=== PATIENT | male | born 1930 | race Caucasian/White ===

== ENCOUNTER → 2017-02-19 | Outpatient (CLI) | payer BC ==
[~2017-02-19] MED LIST: ASPEC81 PO; ASPI81TA28 PO; CALCTAB5 PO; CHOL100010 PO; CHOL100027 PO; CPXI PO; DOXE10CA PO; DOXE50CA3 PO; FING1CAP PO; GLIM4TAB2 PO; HYDR-5688 PO; KETO2GEL2 TOP; LISINOPRIL HCTZ PO; LSN/10125 PO; METF-384 PO; MULT-506 PO; PANT40TA PO; PRAV40TA2 PO; PRLSR20 PO; PRT40 PO; PYRI100T4 PO; SILD100T PO; SILDENAFIL CITRATE PO; TAMS0.4C38 PO
[2017-02-19 17:57] LABS: BASO % 0.1 %; BASO ABS # 0.01 K/uL (0-0.2); COMPLETE YES; EOS % 1.7 %; HEMATOCRIT 40.5 % (42-52); IG% 0.3 %; LYMPH % 3.1 %; LYMPH ABS # 0.23 K/uL (1.2-3.4); MEAN CELL VOLUME 94.4 fL (80-100); MEAN CORPUSCULAR HEMOGLOBIN 31.2 pg (25-34); MEAN CORPUSCULAR HGB CONC 33.1 g/dl (32-36); MEAN PLATELET VOLUME 12.3 fL (7.4-10.4); MONO % 9.7 %; NEUT % 85.1 %; PLATELET COUNT 234 K/uL (130-400); RED BLOOD COUNT 4.29 M/uL (4.7-6.1); WHITE BLOOD COUNT 7.43 K/uL (4.8-10.8)
[2017-02-19 18:22] LABS: ALT/SGPT 28 U/L (12-78); AST/SGOT 18 U/L (15-37); BLOOD UREA NITROGEN 21 mg/dl (7-18); BUN/CREATININE RATIO 11.8 (10-20); CALCIUM 8.8 mg/dl (8.5-10.1); CARBON DIOXIDE 29 mmol/L (21-32); CHLORIDE 103 mmol/L (98-107); GLUCOSE 247 mg/dl (70-99); POTASSIUM 4.1 mmol/L (3.5-5.1); SODIUM 139 mmol/L (136-145)
[2017-02-19 18:23] LABS: ESTIMATED AVERAGE GLUCOSE 200 mg/dl; HA1C FLAG Normal (Normal)
[2017-02-19 18:31] LABS: ALB/GLOB RATIO 1.1 (0.9-2); ALKALINE PHOSPHATASE 115 U/L (45-117); TOTAL IRON BINDING CAPACITY 269 mcg/dl (250-450)
--- NOTE | 2017-02-26 13:51 | CODING QUERY MEDICAL NECESSITY ---
SUPPORTING DIAGNOSIS NEEDED A supporting diagnosis is required for the test/procedure performed on this patient in order for us to be reimbursed by the patient's insurance. Please provide a supporting diagnosis for the following test/procedure listed below next to the test name along with your signature. *If there is no additional diagnosis for this patient that would support the following test/procedure please document that below next to the test/procedure. Test(s)/Procedure(s) that require a supporting diagnosis: * VITAMIN D 25-HYDROXY DIAGNOSIS: * VITAMIN B-12 LEVEL DIAGNOSIS: * DOS: 02/19/17 Provider Signature: Date: Thank you Ava Burnham Health Information Management Once completed, please kindly fax back to [phone] For questions please call [phone]
== END | disposition home or self-care (01) ==
LOC: C.LABPVFM 11:50
PROVIDERS: ATTEND Psychiatry & Neurology Neurology
DX: G35 Multiple sclerosis (principal); R53.83 Other fatigue; F09 Unspecified mental disorder due to known physiological condition; G62.9 Polyneuropathy, unspecified; E11.65 Type 2 diabetes mellitus with hyperglycemia; E55.9 Vitamin D deficiency, unspecified; R41.3 Other amnesia

== ENCOUNTER 2017-05-30 19:30 | Inpatient (IN) | payer BC, OTHER ==
[~2017-05-30] VITALS: Ht 175.3 cm; Wt 85.7 kg
[~2017-05-30 19:30] MED LIST changes: -ASPI81TA28 PO; -CHOL100027 PO; -DOXE10CA PO; -FING1CAP PO; -GLIM4TAB2 PO; -HYDR-5688 PO; -KETO2GEL2 TOP; -LSN/10125 PO; -PANT40TA PO; -PRAV40TA2 PO; -PRLSR20 PO; -PRT40 PO; -PYRI100T4 PO; -SILD100T PO; -TAMS0.4C38 PO
[2017-05-30] MEDS ORDERED: ONDANSETRON INJ 2 MG/ML 2 ML VIAL IV STA (19:50)
[2017-05-30] MEDS ORDERED: SODIUM CHLORIDE 0.9% 1000ML 1,000 ML IV STA (19:50)
[2017-05-30] MEDS ORDERED: FENTANYL CITRATE INJ 50 MCG/1 ML 2 ML VIAL IV STA (19:50)
--- NOTE | 2017-05-30 19:55 | EMERGENCY ROOM VISIT NOTE ---
History Report prepared by Petty: Nikky Braden Under the Supervision of: Dr. Favio Unger M.D. First contact with patient: 19:43 Chief Complaint: ABDOMINAL PAIN Stated Complaint: AB PAIN, HEMATEMESIS Nursing Triage Summary: Pt states he was eating dinner tonight and approx. an hour later he got dizzy/nauseous and had abdominal pain. Pt had vomited once with bright red blood, pt states "a lot." Pt tender to bilateral lower quadrants. Pt states he is a chronic prednisone user. History of Present Illness The patient is a 87 year old male who presents to the Emergency Room with complaints of sudden abdominal pain beginning shortly prior to arrival. The patient reports that after he ate dinner he threw up a significant amount of blood. The patient reports that he is not on any blood thinners but that he takes a baby aspirin every other day. The patient has multiple sclerosis and once had to have a feeding tube placed because he was unable to swallow. He also reports that he has severe dry mouth. He denies having any urinary symptoms. The patient states that he has no history of kidney failure. Source of History: patient Onset: shortly prior to arrival Position: abdomen (epigastric ) Timing: other (sudden) Associated Symptoms: + vomiting (blood), No urinary symptoms Review of Systems See HPI for pertinent positives & negatives. A total of 10 systems reviewed and were otherwise negative. Past Medical & Surgical Medical Problems: (1) Diabetes (2) Hematemesis (3) Hypertension (4) Multiple sclerosis Family History Cancer Diabetes mellitus Hypertension Social History Smoking Status: Never Smoker Marital Status: Housing Status: lives with significant other Occupation Status: retired Current/Historical Medications Scheduled Aspirin (Aspirin Ec), 81 MG PO Q2D Cholecalciferol (Vitamin D 1000 Unit), 1,000 INTER.UNIT PO DAILY Doxepin (Sinequan), 10 MG PO HS Fingolimod Hcl (Gilenya), 1 CAP PO DAILY Glimepiride (Glimepiride), 1 TAB PO DAILY Hctz/Lisinopril (Lisinopril/Hctz 10/12.5 Mg), 1 TAB PO DAILY Omeprazole (Prilosec), 20 MG PO DAILY Pravastatin Sodium (Pravastatin Sodium), 40 MG PO QPM Pyridoxine (Vitamin B6), 100 MG PO DAILY Sildenafil Citrate (Viagra), 100 MG PO WK Scheduled PRN Ketoconazole (Topical) (Xolegel), 1 APPLN TOP DAILY PRN for Allergies Coded Allergies: Sulfa Antibiotics (Verified Allergy, Unknown, ., 05/30/17) Physical Exam Vital Signs Date Time Temp Pulse Resp B/P (MAP) Pulse Ox O2 Delivery O2 Flow Rate FiO2 05/30/17 21:35 91 18 100/62 96 Room Air 05/30/17 19:35 36.7 105 18 100/55 97 Room Air Physical Exam GENERAL: Patient is uncomfortable appearing and in moderate distress. HEENT: No acute trauma, normocephalic atraumatic, mucous membranes dry, no nasal congestion, no scleral icterus. NECK: No stridor, no adenopathy, no meningismus, trachea is midline. LUNGS: No dyspnea. Clear to auscultation and equal bilaterally. No wheeze, no rhonchi. HEART: Regular rate and rhythm. No murmurs, rubs, gallops appreciated. ABDOMEN: Soft, moderate epigastric tenderness, bowel sounds positive, no masses appreciated, no peritonitis. BACK: No midline tenderness, no CVA tenderness EXTREMITIES: Normal motion all extremities, no cyanosis, no edema. NEUROLOGIC: Alert and oriented, no acute motor or sensory deficits, no focal weakness, cranial nerves grossly intact. SKIN: No rash, no jaundice, no diaphoresis. Medical Decision & Procedures ER Provider Diagnostic Interpretation: CT results as stated below per interpretation by me and the radiologist: CT SCAN OF THE ABDOMEN AND PELVIS WITHOUT CONTRAST CLINICAL HISTORY: epigastric pain, vomiting, elevated WBC COMPARISON STUDY: No previous studies for comparison. TECHNIQUE: CT scan of the abdomen and pelvis was performed from the lung bases to the proximal femurs. Images are reviewed in the axial, sagittal, and coronal planes. IV contrast was not administered for this examination. CT DOSE: 1648.42 mGy.cm FINDINGS: Lower chest: There is respiratory motion artifact. There are dependent atelectatic changes. There are coronary artery calcifications present. There is a very small pericardial effusion. Liver: There is a 12 mm hypodensity within the left lobe of the liver, likely representing a cyst. Gallbladder: Unremarkable. There is a calcification adjacent the gallbladder neck. A vascular calcification is favored over a cystic duct calculus. Spleen: Normal in size and attenuation. Pancreas: Unremarkable. Adrenal glands: Unremarkable. Kidneys: No renal, ureteral, or bladder calculi are visualized. There is bilateral perinephric stranding. There is a 13 mm right renal cyst. Bowel: There is colonic diverticulosis. There are no acute peridiverticular inflammatory changes. The appendix appears normal. There is mild bowel wall thickening involving the ascending colon Peritoneum: There is no intraperitoneal free air or abdominal ascites. There is a fat-containing ventral hernia Vasculature: There is a 35mm infrarenal abdominal aortic aneurysm. Adenopathy: There is a left para-aortic lymph node measuring 8 mm. This is the upper limits of normal in size. Pelvic viscera: There are small fat-containing inguinal hernias. The prostate is enlarged measuring approximately 5 cm. Skeletal structures: There are advanced multilevel degenerative changes. There is ankylosis of the thoracic spine. No destructive lesions are visualized. IMPRESSION: 1. Gastric distention 2. Minor wall thickening involving the ascending colon 3. Diverticulosis. No evidence of acute diverticulitis 4. Normal appendix 5. No renal, ureteral, or bladder calculi identified 6. Fat-containing ventral hernia 7. 35mm infrarenal abdominal aortic aneurysm 8. Prostamegaly Electronically signed by: Deepak Skelton M.D. 05/30/2017 8:57 PM Dictated Date/Time: 05/30/2017 8:47 PM Laboratory Results 05/30/17 21:32 Red Blood Count 3.17, Mean Corpuscular Volume 93.1, Mean Corpuscular Hemoglobin 29.7, Mean Corpuscular Hemoglobin Concent 31.9, Mean Platelet Volume 10.9, Neutrophils (%) (Auto) 90.9, Lymphocytes (%) (Auto) 4.5, Monocytes (%) (Auto) 3.7, Eosinophils (%) (Auto) 0.1, Basophils (%) (Auto) 0.1, Neutrophils # (Auto) 13.83, Lymphocytes # (Auto) 0.69, Monocytes # (Auto) 0.57, Eosinophils # (Auto) 0.02, Basophils # (Auto) 0.01 05/30/17 20:00 Test 05/30/17 20:00 05/30/17 21:32 Prothrombin Time 11.2 SECONDS (9.0-12.0) Prothromb Time International Ratio 1.0 (0.9-1.1) Activated Partial Thromboplast Time 36.1 SECONDS (21.0-31.0) Partial Thromboplastin Ratio 1.4 Anion Gap 6.0 mmol/L (3-11) Est Creatinine Clear Calc Drug Dose 27.8 ml/min Estimated GFR () 30.5 Estimated GFR (Non- 26.3 BUN/Creatinine Ratio 16.0 (10-20) Calcium Level 7.9 mg/dl (8.5-10.1) Total Bilirubin 0.5 mg/dl (0.2-1) Direct Bilirubin 0.1 mg/dl (0-0.2) Aspartate Amino Transf (AST/SGOT) 12 U/L (15-37) Alanine Aminotransferase (ALT/SGPT) 18 U/L (12-78) Alkaline Phosphatase 114 U/L (45-117) Troponin I < 0.015 ng/ml (0-0.045) Total Protein 5.8 gm/dl (6.4-8.2) Albumin 3.1 gm/dl (3.4-5.0) Lipase 184 U/L (73-393) Beta-Hydroxybutyric Acid 6.85 mg/dL (0.2-2.81) White Blood Count 15.22 K/uL (4.8-10.8) Red Blood Count 3.17 M/uL (4.7-6.1) Hemoglobin 9.4 g/dL (14.0-18.0) Hematocrit 29.5 % (42-52) Mean Corpuscular Volume 93.1 fL (80-100) Mean Corpuscular Hemoglobin 29.7 pg (25-34) Mean Corpuscular Hemoglobin Concent 31.9 g/dl (32-36) Platelet Count 213 K/uL (130-400) Mean Platelet Volume 10.9 fL (7.4-10.4) Neutrophils (%) (Auto) 90.9 % Lymphocytes (%) (Auto) 4.5 % Monocytes (%) (Auto) 3.7 % Eosinophils (%) (Auto) 0.1 % Basophils (%) (Auto) 0.1 % Neutrophils # (Auto) 13.83 K/uL (1.4-6.5) Lymphocytes # (Auto) 0.69 K/uL (1.2-3.4) Monocytes # (Auto) 0.57 K/uL (0.11-0.59) Eosinophils # (Auto) 0.02 K/uL (0-0.5) Basophils # (Auto) 0.01 K/uL (0-0.2) RDW Standard Deviation 45.5 fL (36.4-46.3) RDW Coefficient of Variation 13.4 % (11.5-14.5) Immature Granulocyte % (Auto) 0.7 % Immature Granulocyte # (Auto) 0.10 K/uL (0.00-0.02) Red Blood Cell Morphology Unremarkable Laboratory results as reviewed by me. Medications Administered Medications (Trade) Dose Ordered Sig/Terrance Route Start Time Stop Time Status Last Admin Dose Admin Sodium Chloride 1,000 ml @ 999 mls/hr Q1H1M STAT IV 05/30/17 19:50 05/30/17 20:50 DC 05/30/17 19:50 999 MLS/HR Fentanyl Citrate (Fentanyl Inj) 50 mcg NOW STAT IV 05/30/17 19:50 05/30/17 19:52 DC 05/30/17 20:21 50 MCG Ondansetron HCl (Zofran Inj) 4 mg NOW STAT IV 05/30/17 19:50 05/30/17 19:52 DC 05/30/17 20:20 4 MG Pantoprazole Sodium 80 mg/ Dextrose 120 ml @ 480 mls/hr TODAY@2114 IV 05/30/17 21:15 05/30/17 21:29 DC 05/30/17 21:37 480 MLS/HR Pantoprazole Sodium 40 mg/ Dextrose 100 ml @ 20 mls/hr Q5H IV 05/30/17 21:30 05/31/17 02:29 05/30/17 21:37 20 MLS/HR ECG Indication: vomiting Rate (beats per minute): 103 Rhythm: sinus tachycardia Findings: no acute ischemic change, no ectopy ED Course 1948: The patient was evaluated in room A12. A complete history and physical exam was performed. 1949: Ordered Ondansetron HCl 4 mg IV, Fentanyl Citrate 50 mcg IV, Sodium Chloride 1,000 ml @ 999 mls/hr IV. 2027: The patient just received pain medication. 2108: Ordered Pantoprazole Sodium 1 ea IV. 2109: Discussed the patient's case with Dr. Kwan. The patient will be evaluated for further treatment and disposition. 2114: Ordered Pantoprazole Sodium 80 mg/ Dextrose 120 ml @ 480 mls/hr. 2129: Ordered Pantoprazole Sodium 40 mg/Dextrose 100 ml @ 20 mls/hr. 2144: Upon reevaluation, the patient is resting. Discussed results and treatment plan with the patient. He verbalized understanding and agreement with the treatment plan. The patient will be evaluated for further management. Medical Decision Differential: Cholecystitis, Gallbladder disfunction, Hepatic Disfunction, Gastritis/PUD, Pancreatitis, ACS, Aortic Pathology, amongst other pathologies entertained. Blood pressure screening: Patient was found to be moderately hypotensive. Medication Reconciliation: I attest that I have personally reviewed the patient 's current medication list. 87 yr old male arrives after episode of large amount bloody emesis after eating. Epigastric pain on arrival with mild low BP, though of note it is not surgical type abdominal exam at this time. Vastly improved with fentanyl, zofran and some NSS bolus. In no distress and comfortable. Initial WBC elevated and with vomiting blood, and epigastric pain, went ahead with CT even though feeling much better. Cr 2.0 thus no IV contrast and with recent vomiting avoid PO contrast. Distended stomach on CT which I suspect has blood in it. Started IV Protonix. No further vomiting, vitals stable and patient feeling well. I suspect upper GI bleed with likely gastric ulcer as source. With fluids BP in 130s from initial 100s. HR doing well. Reviewed with Gastro and will monitor on PPI overnight for moment. Hospitalist will bring in. Type and screen sent though with initial Hgb 11 will hold on any transfusion. Of note, initial CBC was at some point deleted from system and redraw blood drawn. This showed some mild decrease in HgB and discussed with hospitalist further. Patient continued to be stable without complaint. Consults Time Called: 2099 Consulting Physician: Dr. Kwan Returned Call: [phone] Discussed the patient's case. The patient will be evaluated for further treatment and disposition. Impression Primary Impression: Upper GI bleed Scribe Attestation The scribe's documentation has been prepared under my direction and personally reviewed by me in its entirety. I confirm that the note above accurately reflects all work, treatment, procedures, and medical decision making performed by me. Departure Information Dispostion Being Evaluated By Hospitalist Referrals Miguelito King M.D. (PCP) Patient Instructions My [facility]
[2017-05-30 20:24] LABS: PARTIAL THROMBOPLASTIN RATIO 1.4; PROTHROMBIN TIME (PATIENT) 11.2 SECONDS (9.0-12.0)
[2017-05-30 20:34] LABS: ALT/SGPT 18 U/L (12-78); AST/SGOT 12 U/L (15-37); BLOOD UREA NITROGEN 35 mg/dl (7-18); CALCIUM 7.9 mg/dl (8.5-10.1); CARBON DIOXIDE 25 mmol/L (21-32); CHLORIDE 106 mmol/L (98-107); GLUCOSE 315 mg/dl (70-99); SODIUM 137 mmol/L (136-145)
[2017-05-30] MEDS ORDERED: CHOL100027 PO (20:41)
[2017-05-30] MEDS ORDERED: FING1CAP PO (20:41)
[2017-05-30] MEDS ORDERED: DOXE10CA PO (20:41)
[2017-05-30] MEDS ORDERED: ASPI81TA28 PO (20:41)
[2017-05-30] MEDS ORDERED: KETO2GEL2 TOP (20:41)
[2017-05-30] MEDS ORDERED: LSN/10125 PO (20:41)
[2017-05-30] MEDS ORDERED: SILD100T PO (20:41)
[2017-05-30 20:44] LABS: ALKALINE PHOSPHATASE 114 U/L (45-117); BETA-HYDROXYBUTYRATE 6.85 mg/dL (0.2-2.81)
[2017-05-30] MEDS ORDERED: GLIM4TAB2 PO (20:46)
[2017-05-30] MEDS ORDERED: PYRI100T4 PO (20:46)
--- NOTE | 2017-05-30 20:58 | DIAGNOSTIC IMAGING REPORT ---
CT SCAN OF THE ABDOMEN AND PELVIS WITHOUT CONTRAST CLINICAL HISTORY: epigastric pain, vomiting, elevated WBC COMPARISON STUDY: No previous studies for comparison. TECHNIQUE: CT scan of the abdomen and pelvis was performed from the lung bases to the proximal femurs. Images are reviewed in the axial, sagittal, and coronal planes. IV contrast was not administered for this examination. CT DOSE: 1648.42 mGy.cm FINDINGS: Lower chest: There is respiratory motion artifact. There are dependent atelectatic changes. There are coronary artery calcifications present. There is a very small pericardial effusion. Liver: There is a 12 mm hypodensity within the left lobe of the liver, likely representing a cyst. Gallbladder: Unremarkable. There is a calcification adjacent the gallbladder neck. A vascular calcification is favored over a cystic duct calculus. Spleen: Normal in size and attenuation. Pancreas: Unremarkable. Adrenal glands: Unremarkable. Kidneys: No renal, ureteral, or bladder calculi are visualized. There is bilateral perinephric stranding. There is a 13 mm right renal cyst. Bowel: There is colonic diverticulosis. There are no acute peridiverticular inflammatory changes. The appendix appears normal. There is mild bowel wall thickening involving the ascending colon Peritoneum: There is no intraperitoneal free air or abdominal ascites. There is a fat-containing ventral hernia Vasculature: There is a 35mm infrarenal abdominal aortic aneurysm. Adenopathy: There is a left para-aortic lymph node measuring 8 mm. This is the upper limits of normal in size. Pelvic viscera: There are small fat-containing inguinal hernias. The prostate is enlarged measuring approximately 5 cm. Skeletal structures: There are advanced multilevel degenerative changes. There is ankylosis of the thoracic spine. No destructive lesions are visualized. IMPRESSION: 1. Gastric distention 2. Minor wall thickening involving the ascending colon 3. Diverticulosis. No evidence of acute diverticulitis 4. Normal appendix 5. No renal, ureteral, or bladder calculi identified 6. Fat-containing ventral hernia 7. 35mm infrarenal abdominal aortic aneurysm 8. Prostamegaly Electronically signed by: Deepak Skelton M.D. 05/30/2017 8:57 PM Dictated Date/Time: 05/30/2017 8:47 PM
[2017-05-30] MEDS ORDERED: PANTOprazole INJ 80 MG in DEXTROSE 5% 100ML IV SCH (21:15)
[2017-05-30] MEDS ORDERED: PANTOprazole INJ 40 MG in DEXTROSE 5% 100ML IV SCH (21:30)
[2017-05-30 21:43] LABS: HEMATOCRIT 29.5 % (42-52); MEAN CELL VOLUME 93.1 fL (80-100); MEAN CORPUSCULAR HEMOGLOBIN 29.7 pg (25-34); MEAN CORPUSCULAR HGB CONC 31.9 g/dl (32-36); MEAN PLATELET VOLUME 10.9 fL (7.4-10.4); PLATELET COUNT 213 K/uL (130-400); RED BLOOD COUNT 3.17 M/uL (4.7-6.1); WHITE BLOOD COUNT 15.22 K/uL (4.8-10.8)
[2017-05-30] MEDS ORDERED: GLUCOSE 10 TABS/TUBE PO PRN (22:00)
[2017-05-30] MEDS ORDERED: GLUCOSE 40% GEL 15 GM TUBE PO PRN (22:00)
[2017-05-30] MEDS ORDERED: DEXTROSE 50% 50 ML SYR IV PRN (22:00)
[2017-05-30] MEDS ORDERED: GLUCAGON FOR INJ 1 MG VIAL SQ PRN (22:00)
[2017-05-30 22:43] LABS: BASO % 0.1 %; BASO ABS # 0.01 K/uL (0-0.2); COMPLETE YES; EOS % 0.1 %; IG% 0.7 %; LYMPH % 4.5 %; LYMPH ABS # 0.69 K/uL (1.2-3.4); MONO % 3.7 %; NEUT % 90.9 %
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
[2017-05-30 23:14] VITALS: BP 136/68; PULSE 96; TEMP 36.7; O2SAT 95; BMI 28.9
[2017-05-30] MEDS ORDERED: PRLSR20 PO (23:41)
[2017-05-30 23:45] VITALS: BP 101/62; PULSE 91; TEMP 36.6; O2SAT 94
[2017-05-30] MEDS ORDERED: PRAV40TA2 PO (23:50)
[2017-05-30] MEDS: SODIUM CHLORIDE 0.9% 1000ML 1,000 ML IV SCH (23:50)
[2017-05-30 23:55] VITALS: BP 99/63; PULSE 90; TEMP 37; O2SAT 95
[2017-05-30] MEDS: INSULIN ASPART 100 UNITS/ML 3 ML PEN SC SCH (23:57)
[2017-05-31] VITALS (16 sets, daily range): BP systolic 93–163; BP diastolic 48–78; PULSE 83–106; TEMP 36.4–37.4; O2SAT 93–98; Ht 175.3 cm; Wt 85.7 kg
[2017-05-31] MEDS: PANTOprazole INJ 40 MG in DEXTROSE 5% 100ML IV SCH ×5 (02:35→22:05)
[2017-05-31 04:37] LABS: BUN/CREATININE RATIO 21.6 (10-20); POTASSIUM 4.2 mmol/L (3.5-5.1)
[2017-05-31] MEDS: INSULIN ASPART 100 UNITS/ML 3 ML PEN SC SCH ×4 (05:58→23:32)
[2017-05-31] MEDS ORDERED: INSULIN ASPART 100 UNITS/ML 3 ML PEN SC SCH (07:00)
[2017-05-31] MEDS: SODIUM CHLORIDE 0.9% 1000ML 1,000 ML IV SCH (07:52)
--- NOTE | 2017-05-31 08:27 | Hospitalist Progress Note ---
Hospitalist Progress Note Date of Service May 31, 2017. (Nadine Aparicio PA-C) Subjective Pt evaluation today including: conversation w/ patient, physical exam, chart review, lab review, review of studies Pain: none PO Intake: npo Voiding: no voiding problems The patient was seen and examined this morning. Pt reports doing well today he denies any abdominal pain, nausea, vomiting and had 1 regular formed light brown bm this morning. He is currently NPO for possible EGD today. He reports seeing a PCP in [place] at the [facility] for 20 + years, but has just recently switched to [facility]. He reports being on prednisone for a long time, however cannot tell me what its for or the dosage for sure. His is coming in today and he reports she will know. He receives medications from multiple pharmacies and is not sure who prescribes the prednisone either. Constitutional: No fever, No chills, No sweats Eyes: No redness, No diplopia ENT: No nasal symptoms, No trouble swallowing Respiratory: No shortness of breath, No dyspnea on exertion, No dyspnea at rest Cardiovascular: No chest pain, No palpitations Abdomen: No pain, No nausea, No vomiting, No diarrhea, No constipation Musculoskeletal: No joint pain, No muscle pain, No swelling Neurologic: + memory loss (worsening over past year), No weakness, No numbness/tingling Endo: No fatigue Skin: No rash, No itch (Nadine Aparicio PA-C) Objective Vital Signs Date Time Temp Pulse Resp B/P (MAP) Pulse Ox O2 Delivery O2 Flow Rate FiO2 05/31/17 07:18 36.7 89 16 102/48 (66) 96 Room Air 05/31/17 04:01 36.4 101 18 123/68 (86) 98 Room Air 05/31/17 04:00 Room Air 05/31/17 02:05 36.9 88 16 93/57 96 05/31/17 01:05 37.0 83 18 98/60 96 05/31/17 00:35 37.1 87 16 94/60 95 05/31/17 00:20 36.7 89 16 99/61 93 05/31/17 00:05 36.5 89 16 100/62 94 05/31/17 00:00 Room Air 05/31/17 00:00 36.6 90 16 100/64 93 05/30/17 23:55 37.0 90 16 99/63 95 05/30/17 23:45 36.6 91 16 101/62 94 05/30/17 23:14 36.7 96 20 136/68 95 Room Air 05/30/17 21:35 91 18 100/62 96 Room Air 05/30/17 19:35 36.7 105 18 100/55 97 Room Air (Nadine Aparicio PA-C) Physical Exam General Appearance: WD/WN, no apparent distress Eyes: PERRL, EOMI ENT: hearing grossly normal, pharynx normal Neck: supple, no JVD Respiratory/Chest: lungs clear, no respiratory distress, no accessory muscle use, + pertinent finding (on room air) Cardiovascular: regular rate, rhythm, no JVD Abdomen: normal bowel sounds, non tender, soft Extremities: non-tender, no pedal edema, no calf tenderness Neurologic/Psychiatric: alert, normal mood/affect, oriented x 3 Skin: normal color, warm/dry (Nadine Aparicio PA-C) Laboratory Results Last 24 Hours Test 05/30/17 20:00 05/30/17 21:32 05/30/17 23:53 05/31/17 01:02 Prothrombin Time 11.2 SECONDS Prothromb Time International Ratio 1.0 Activated Partial Thromboplast Time 36.1 SECONDS Partial Thromboplastin Ratio 1.4 Sodium Level 137 mmol/L Potassium Level 5.0 mmol/L Chloride Level 106 mmol/L Carbon Dioxide Level 25 mmol/L Anion Gap 6.0 mmol/L Blood Urea Nitrogen 35 mg/dl Creatinine 2.20 mg/dl Est Creatinine Clear Calc Drug Dose 27.8 ml/min Estimated GFR () 30.5 Estimated GFR (Non- 26.3 BUN/Creatinine Ratio 16.0 Random Glucose 315 mg/dl Calcium Level 7.9 mg/dl Total Bilirubin 0.5 mg/dl Direct Bilirubin 0.1 mg/dl Aspartate Amino Transf (AST/SGOT) 12 U/L Alanine Aminotransferase (ALT/SGPT) 18 U/L Alkaline Phosphatase 114 U/L Troponin I < 0.015 ng/ml Total Protein 5.8 gm/dl Albumin 3.1 gm/dl Lipase 184 U/L Beta-Hydroxybutyric Acid 6.85 mg/dL White Blood Count 15.22 K/uL Red Blood Count 3.17 M/uL Hemoglobin 9.4 g/dL Hematocrit 29.5 % Mean Corpuscular Volume 93.1 fL Mean Corpuscular Hemoglobin 29.7 pg Mean Corpuscular Hemoglobin Concent 31.9 g/dl Platelet Count 213 K/uL Mean Platelet Volume 10.9 fL Neutrophils (%) (Auto) 90.9 % Lymphocytes (%) (Auto) 4.5 % Monocytes (%) (Auto) 3.7 % Eosinophils (%) (Auto) 0.1 % Basophils (%) (Auto) 0.1 % Neutrophils # (Auto) 13.83 K/uL Lymphocytes # (Auto) 0.69 K/uL Monocytes # (Auto) 0.57 K/uL Eosinophils # (Auto) 0.02 K/uL Basophils # (Auto) 0.01 K/uL RDW Standard Deviation 45.5 fL RDW Coefficient of Variation 13.4 % Immature Granulocyte % (Auto) 0.7 % Immature Granulocyte # (Auto) 0.10 K/uL Red Blood Cell Morphology Unremarkable Bedside Glucose 340 mg/dl 281 mg/dl Test 05/31/17 04:10 05/31/17 05:54 05/31/17 08:00 Hemoglobin 10.3 g/dL Sodium Level 144 mmol/L Potassium Level 4.2 mmol/L Chloride Level 111 mmol/L Carbon Dioxide Level 27 mmol/L Anion Gap 6.0 mmol/L Blood Urea Nitrogen 43 mg/dl Creatinine 2.00 mg/dl Est Creatinine Clear Calc Drug Dose 29.8 ml/min Estimated GFR () 34.3 Estimated GFR (Non- 29.6 BUN/Creatinine Ratio 21.6 Random Glucose 141 mg/dl Calcium Level 8.0 mg/dl Magnesium Level 2.0 mg/dl Bedside Glucose 143 mg/dl (Nadine Aparicio, PAAilinC) Assessment and Plan 87 y/o M Hx MS, DM, HTN who presented with an acute GI bleed and hematemesis. GI bleed with hematemesis - On tele, continue until GI see's pt. May be stable for transfer to tele later this afternoon. - Hgb has decreased form 13.5 to 9.5 at time of admit, now s/p 1 U PRBCs, Hgb improved to 10.3 - GI consulted - NPO for now in case of possible EGD - protonix inj - PT/OT once GI bleed stable - NSS @ 100 ml/hr continuous for now DM II - ISS with accuchecks Q6h while npo/achs with diet. Multiple Sclerosis - currently treated with Fingolimod - resume following hospitalization - takes chronic prednisone but unsure of the reason ( I assume its for MS) - dosage and time length unknown but pt will ask his . She will be here this morning. I have asked the nursing staff to call me if she arrives with the information. Pt gets meds from multiple pharmacies and does not know who prescribes it. 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 Discussed with SALMA Aparicio and agree with findings and plan as documented in the note. Any exceptions or clarifications are listed here: Pt feels better. No further epigastric pain. RN rpeorts pt had one BM today that had some black in it and some brown stool. No further hematemesis. I discussed case with GI at [address] Mathew was never made aware of the consult. EGD not performed todya. Hemodynamically stable and no further evidence of bleeding, H/H remained stable after transfusion. VSS NAD, pleasant RRR no mgr CTAB no wcr ABd +BS sot NT ND, no masses Ext no edema 87 yo male with h/o MS, HTN, DMII, here with hematemesis and anemia of acute blood loss. -ok for full liquids diet for dinner, then NPO after midnight in case of need for EGD urgently on Sat. -if H/H remains stable and no evidence of hemodynamic compromise, can wait till Saturday for EGD -hold BP meds for now -Of note, he is NOT on prednisone at all as the ER MD note suggested Documented By: Shalini Valdez (Shalini Valdez MD)
--- NOTE | 2017-05-31 08:31 | Clinical Documentation Query ---
CLINICAL DOCUMENTATION QUERY 87 year old male who presents to the Emergency Room with complaints of sudden abdominal pain and hematemesis In your clinical opinion is this patient being managed for: ( x ) Acute blood loss anemia in setting of GI Bleed evidenced by Hematemesis and anemia requiring blood transfusion. ( ) Other explanation of clinical findings (Please Explain) ( ) Unable to determine (Please Define) ( ) Need to Discuss ( ) Not Agree The medical record reflects the following clinical findings, treatment, and risk factors. Clinical Indicators: As above. Hgb 9.4, Hct 29.5 Treatment: 1 unit of PRBC's, IVF's, GI consult, Risk Factors: Age, GIB, home NSAID therapy, Please clarify and document your clinical opinion in the progress notes and discharge summary. Terms such as "probable", "suspected", "likely", "questionable", "possible", or "still to be ruled out" are acceptable. IF IN AGREEMENT, YOU MUST DOCUMENT ABOVE DIAGNOSTIC STATEMENT IN DAILY PROGRESS NOTES AND DISCHARGE SUMMARY. This document is not part of the patient's record. Thank You, Franck Diaz, ALLY [phone]
--- NOTE | 2017-05-31 18:13 | Gastrointestinal Consultation ---
Gastrointestinal Consultation Date of Consultation: May 31, 2017 Consulting Physician: Michael Mathew Reason for Consultation: hematemesis History of Present Illness Patient is a 87 year old male with a long-standing history of multiple sclerosis was put on a baby aspirin every other day along with omeprazole. He hasn't had no abdominal pain until last evening when he developed severe epigastric pain. This was associated with one episode of bright red hematemesis about 1 cup in volume. He also had some loose stools but there was no visible blood until today. Even though the patient was admitted to the hospital last evening I was not notified of the patient's consultation until 4: 00 this afternoon. Patient reports no prior history of peptic ulcer disease or hematemesis. Past Medical/Surgical History Medical Problems: (1) Upper GI bleed Status: Acute Past Medical History: Patient has history of multiple sclerosis Family History Cancer Diabetes mellitus Hypertension Social History Smoking Status: Never Smoker Marital Status: Housing Status: lives with significant other Occupation Status: retired Allergies Coded Allergies: Sulfa Antibiotics (Verified Allergy, Unknown, ., 05/30/17) Current Medications Home Meds and Scripts Medications Dose Route/Sig Max Daily Dose Days Date Category Glimepiride 4 Mg Tab 1 Tab PO DAILY 90 05/30/17 Reported Vitamin B6 (Pyridoxine HCl) 100 Mg Tab 100 Mg PO DAILY 05/30/17 Reported Gilenya (Fingolimod Hcl) 0.5 Mg Cap 1 Cap PO DAILY 05/30/17 Reported Xolegel (Ketoconazole (Topical)) 2 % Gel 1 Appln TOP DAILY PRN 05/30/17 Reported Viagra (Sildenafil Citrate) 100 Mg Tab 100 Mg PO WK 05/30/17 Reported Sinequan (Doxepin HCl) 10 Mg Cap 10 Mg PO HS 05/30/17 Reported Lisinopril/Hctz 10/12.5 Mg (HCTZ/Lisinopril) 1 Ea Tab 1 Tab PO DAILY 05/30/17 Reported Aspirin Ec (Aspirin) 81 Mg Tab 81 Mg PO Q2D 05/30/17 Reported Vitamin D 1000 Unit (Cholecalciferol) 1,000 Unit Cap 1,000 Inter.unit PO DAILY 05/30/17 Reported Pravastatin Sodium 40 Mg Tab 40 Mg PO QPM 02/07/15 Reported Prilosec (Omeprazole) 20 Mg Capcr 20 Mg PO DAILY 02/07/15 Reported Review of Systems Constitutional: No see HPI, No fever, No chills, No sweats, No weight loss, No weakness, No fatigue, No problem reported Eyes: No see HPI, No worsening of vision, No eye pain, No redness, No discharge , No diplopia, No problem reported Respiratory: No see HPI, No cough, No sputum, No wheezing, No shortness of breath, No dyspnea on exertion, No dyspnea at rest, No hemoptysis, No problem reported Cardiac: No see HPI, No chest pain, No orthopnea, No PND, No edema, No claudication, No palpitations, No problem reported Male : + dysuria Physical Exam Date Time Temp Pulse Resp B/P (MAP) Pulse Ox O2 Delivery O2 Flow Rate FiO2 05/31/17 16:00 96 Room Air 05/31/17 15:49 37.1 105 22 163/77 (105) 97 Room Air 05/31/17 12:00 96 Room Air 05/31/17 11:28 37.2 106 16 151/72 (98) 96 05/31/17 08:00 96 Room Air 05/31/17 07:18 36.7 89 16 102/48 (66) 96 Room Air 05/31/17 04:01 36.4 101 18 123/68 (86) 98 Room Air 05/31/17 04:00 Room Air 05/31/17 02:05 36.9 88 16 93/57 96 05/31/17 01:05 37.0 83 18 98/60 96 05/31/17 00:35 37.1 87 16 94/60 95 05/31/17 00:20 36.7 89 16 99/61 93 05/31/17 00:05 36.5 89 16 100/62 94 05/31/17 00:00 Room Air 05/31/17 00:00 36.6 90 16 100/64 93 05/30/17 23:55 37.0 90 16 99/63 95 05/30/17 23:45 36.6 91 16 101/62 94 05/30/17 23:14 36.7 96 20 136/68 95 Room Air 05/30/17 21:35 91 18 100/62 96 Room Air 05/30/17 19:35 36.7 105 18 100/55 97 Room Air Respiratory/Chest: lungs clear Cardiovascular: regular rate, rhythm Abdomen: non tender, + pertinent finding (prior gastrostomy scar) Laboratory Results Last 24 Hours Test 05/30/17 20:00 05/30/17 21:32 05/30/17 23:53 05/31/17 01:02 Prothrombin Time 11.2 SECONDS Prothromb Time International Ratio 1.0 Activated Partial Thromboplast Time 36.1 SECONDS Partial Thromboplastin Ratio 1.4 Sodium Level 137 mmol/L Potassium Level 5.0 mmol/L Chloride Level 106 mmol/L Carbon Dioxide Level 25 mmol/L Anion Gap 6.0 mmol/L Blood Urea Nitrogen 35 mg/dl Creatinine 2.20 mg/dl Est Creatinine Clear Calc Drug Dose 27.8 ml/min Estimated GFR () 30.5 Estimated GFR (Non- 26.3 BUN/Creatinine Ratio 16.0 Random Glucose 315 mg/dl Calcium Level 7.9 mg/dl Total Bilirubin 0.5 mg/dl Direct Bilirubin 0.1 mg/dl Aspartate Amino Transf (AST/SGOT) 12 U/L Alanine Aminotransferase (ALT/SGPT) 18 U/L Alkaline Phosphatase 114 U/L Troponin I < 0.015 ng/ml Total Protein 5.8 gm/dl Albumin 3.1 gm/dl Lipase 184 U/L Beta-Hydroxybutyric Acid 6.85 mg/dL White Blood Count 15.22 K/uL Red Blood Count 3.17 M/uL Hemoglobin 9.4 g/dL Hematocrit 29.5 % Mean Corpuscular Volume 93.1 fL Mean Corpuscular Hemoglobin 29.7 pg Mean Corpuscular Hemoglobin Concent 31.9 g/dl Platelet Count 213 K/uL Mean Platelet Volume 10.9 fL Neutrophils (%) (Auto) 90.9 % Lymphocytes (%) (Auto) 4.5 % Monocytes (%) (Auto) 3.7 % Eosinophils (%) (Auto) 0.1 % Basophils (%) (Auto) 0.1 % Neutrophils # (Auto) 13.83 K/uL Lymphocytes # (Auto) 0.69 K/uL Monocytes # (Auto) 0.57 K/uL Eosinophils # (Auto) 0.02 K/uL Basophils # (Auto) 0.01 K/uL RDW Standard Deviation 45.5 fL RDW Coefficient of Variation 13.4 % Immature Granulocyte % (Auto) 0.7 % Immature Granulocyte # (Auto) 0.10 K/uL Red Blood Cell Morphology Unremarkable Bedside Glucose 340 mg/dl 281 mg/dl Test 05/31/17 04:10 05/31/17 05:54 05/31/17 08:16 05/31/17 11:10 Hemoglobin 10.3 g/dL 10.1 g/dL Sodium Level 144 mmol/L Potassium Level 4.2 mmol/L Chloride Level 111 mmol/L Carbon Dioxide Level 27 mmol/L Anion Gap 6.0 mmol/L Blood Urea Nitrogen 43 mg/dl Creatinine 2.00 mg/dl Est Creatinine Clear Calc Drug Dose 29.8 ml/min Estimated GFR () 34.3 Estimated GFR (Non- 29.6 BUN/Creatinine Ratio 21.6 Random Glucose 141 mg/dl Calcium Level 8.0 mg/dl Magnesium Level 2.0 mg/dl Bedside Glucose 143 mg/dl 153 mg/dl Test 05/31/17 11:48 Hemoglobin 10.3 g/dL Impression Patient is a 87 year old male with hematemesis and drop in blood count. Differential diagnosis includes ulcer from aspirin or Hamida-Segundo tear. Plan The patient will continue on IV Protonix for now and be on a liquid diet. We' ll continue to follow his blood counts and schedule him for an EGD on Saturday unless he bleeds actively in which case we'll do an EGD emergently over the weekend. Dr. Callaway is covering for the weekend.
[2017-05-31] MEDS ORDERED: LORAZEPAM 0.5 MG TAB PO PRN (18:15)
[2017-06-01] MEDS: PANTOprazole INJ 40 MG in DEXTROSE 5% 100ML IV SCH ×5 (02:57→23:08)
[2017-06-01 03:18] VITALS: BP 133/76; PULSE 78; TEMP 36.9; O2SAT 94
[2017-06-01] MEDS: INSULIN ASPART 100 UNITS/ML 3 ML PEN SC SCH ×4 (06:00→20:58)
[2017-06-01 07:14] VITALS: BP 133/64; PULSE 81; TEMP 37.1; O2SAT 93
[2017-06-01 09:25] LABS: HEMATOCRIT 30.6 % (42-52); MEAN CELL VOLUME 93.9 fL (80-100); MEAN CORPUSCULAR HEMOGLOBIN 30.1 pg (25-34); MEAN PLATELET VOLUME 11.9 fL (7.4-10.4); PLATELET COUNT 189 K/uL (130-400); RED BLOOD COUNT 3.26 M/uL (4.7-6.1); WHITE BLOOD COUNT 10.63 K/uL (4.8-10.8)
[2017-06-01 09:49] LABS: BUN/CREATININE RATIO 27.1 (10-20); CALCIUM 8.7 mg/dl (8.5-10.1); CREATININE 1.6 mg/dl (0.60-1.40); POTASSIUM 4.1 mmol/L (3.5-5.1)
[2017-06-01] MEDS ORDERED: NURSING VERBAL MED ORDER ONE (11:15)
[2017-06-01 11:23] VITALS: BP 142/73; PULSE 78; TEMP 37.1; O2SAT 96
[2017-06-01] MEDS: FINGOLIMOD HCL 0.5 MG PO SCH (14:29)
[2017-06-01 14:39] LABS: HEMATOCRIT 29.5 % (42-52)
[2017-06-01] MEDS: ONDANSETRON INJ 2 MG/ML 2 ML VIAL IV PRN (14:40)
[2017-06-01 16:20] VITALS: BP 123/70; PULSE 76; TEMP 36.8; O2SAT 97
--- NOTE | 2017-06-01 18:24 | Gastroenterology Progress Note ---
Progress Note Date of Service: Jun 01, 2017 Subjective Pt evaluation today including: conversation w/ patient, conversation w/ family ( and daughter Yany), physical exam, chart review, lab review, review of studies, review of inpatient medication list CC f/u n/v, melena HPI--some nausea but no vomiting today. No abd pain. One stool today at 1444 black tarry/loose. Review of Systems Respiratory: No shortness of breath Cardiac: No chest pain Medications Current Inpatient Medications Medications (Trade) Dose Ordered Sig/Terrance Route Start Time Stop Time Status Last Admin Dose Admin Ondansetron HCl (Zofran Inj) 4 mg Q6H PRN IV 05/30/17 21:45 06/29/17 21:44 06/01/17 14:40 4 MG Glucose (Glucose 40% Gel) 15-30 GRAMS 15 GRAMS... UD PRN PO 05/30/17 22:00 06/29/17 21:59 Glucose (Glucose Chew Tab) 4-8 Tablets 4 Tabl... UD PRN PO 05/30/17 22:00 06/29/17 21:59 Dextrose (Dextrose 50% 50ML Syringe) 25-50ML OF 50% DW IV FOR... UD PRN IV 05/30/17 22:00 06/29/17 21:59 Glucagon (Glucagon Inj) 1 mg UD PRN SQ 05/30/17 22:00 06/29/17 21:59 Pantoprazole Sodium 40 mg/ Dextrose 100 ml @ 20 mls/hr Q5H IV 05/31/17 02:30 06/30/17 02:29 06/01/17 12:59 20 MLS/HR Lorazepam (Ativan Tab) 0.5 mg Q6HWA PRN PO 05/31/17 18:15 06/30/17 18:14 05/31/17 19:50 0.5 MG Insulin Aspart (novoLOG ASPART) SLIDING SCALE G... ACHS SC 06/01/17 11:30 07/01/17 11:29 06/01/17 11:56 2 UNITS Objective Vital Signs Date Time Temp Pulse Resp B/P (MAP) Pulse Ox O2 Delivery O2 Flow Rate FiO2 06/01/17 16:20 36.8 76 18 123/70 (87) 97 Nasal Cannula 06/01/17 16:00 Room Air 7/8/17 12:00 Room Air 06/01/17 11:23 37.1 78 20 142/73 (96) 96 Room Air 06/01/17 08:00 Room Air 06/01/17 07:14 37.1 81 20 133/64 (87) 93 Room Air 06/01/17 04:00 Room Air 06/01/17 03:18 36.9 78 16 133/76 (95) 94 Room Air 06/01/17 00:00 Room Air 05/31/17 23:22 37.0 93 20 127/64 (85) 96 Room Air 05/31/17 20:12 96 Room Air 05/31/17 19:28 37.4 98 22 138/78 (98) 96 Room Air Physical Exam General Appearance: WD/WN, no apparent distress Respiratory/Chest: lungs clear, no respiratory distress Cardiovascular: no murmur Abdomen: normal bowel sounds, non tender, soft Neurologic/Psych: normal mood/affect Laboratory Results Last 24 Hours Test 05/31/17 23:17 06/01/17 05:59 06/01/17 07:26 06/01/17 11:21 Bedside Glucose 110 mg/dl 114 mg/dl 201 mg/dl White Blood Count 10.63 K/uL Red Blood Count 3.26 M/uL Hemoglobin 9.8 g/dL Hematocrit 30.6 % Mean Corpuscular Volume 93.9 fL Mean Corpuscular Hemoglobin 30.1 pg Mean Corpuscular Hemoglobin Concent 32.0 g/dl RDW Standard Deviation 48.6 fL RDW Coefficient of Variation 14.2 % Platelet Count 189 K/uL Mean Platelet Volume 11.9 fL Sodium Level 143 mmol/L Potassium Level 4.1 mmol/L Chloride Level 111 mmol/L Carbon Dioxide Level 24 mmol/L Anion Gap 8.0 mmol/L Blood Urea Nitrogen 43 mg/dl Creatinine 1.60 mg/dl Est Creatinine Clear Calc Drug Dose 37.4 ml/min Estimated GFR () 44.9 Estimated GFR (Non- 38.7 BUN/Creatinine Ratio 27.1 Random Glucose 122 mg/dl Calcium Level 8.7 mg/dl Test 06/01/17 14:32 06/01/17 16:34 Hemoglobin 9.7 g/dL Hematocrit 29.5 % Bedside Glucose 137 mg/dl Assessment and Plan melena--likely PUD from ASA use---Continue PPI drip. H and H stable today so does not appear to be actively bleeding. EGD saturday unless actively bleeds then can do urgently. nausea--continue antemetics acute blood loss anemia--follow H and H. Hematemesis--none today.
[2017-06-01 19:46] VITALS: BP 121/71; PULSE 79; TEMP 37; O2SAT 95
--- NOTE | 2017-06-01 21:35 | Progress Note ---
Subjective Date of Service: Jun 01, 2017. Subjective Pt evaluation today including: conversation w/ patient, conversation w/ family , physical exam, chart review, lab review, review of studies, review of inpatient medication list Pain: denies pain Voiding: elliott catheter in place Patient was seen and examined by me this morning. Pt reports doing well today he denies any abdominal pain, however have some nausea, but no vomiting and had 1 dark hebert black bm this morning. He is currently on clear liquid EGD per Gi on saturday. pt daughter and are present during my encounter, all question answered. Problem List Medical Problems: (1) Upper GI bleed Status: Acute Review of Systems Constitutional: No fever, No chills, No sweats Eyes: No redness, No diplopia ENT: No nasal symptoms, No trouble swallowing Respiratory: No shortness of breath, No dyspnea on exertion, No dyspnea at rest Cardiovascular: No chest pain, No palpitations Abdomen: No pain, + nausea, No vomiting, No diarrhea, No constipation Musculoskeletal: No joint pain, No muscle pain, No swelling Neurologic: + memory loss (worsening over past year), No weakness, No numbness/tingling Endo: No fatigue Skin: No rash, No itch Medications Medications (Trade) Dose Ordered Sig/Terrance Route Start Time Stop Time Status Last Admin Dose Admin Insulin Aspart (novoLOG ASPART) SLIDING SCALE G... ACHS SC 06/01/17 11:30 07/01/17 11:29 06/01/17 20:58 2 UNITS Objective Vital Signs Date Time Temp Pulse Resp B/P (MAP) Pulse Ox O2 Delivery O2 Flow Rate FiO2 06/01/17 20:00 Room Air 06/01/17 19:46 37.0 79 18 121/71 (88) 95 Room Air 06/01/17 16:20 36.8 76 18 123/70 (87) 97 Nasal Cannula 06/01/17 16:00 Room Air 06/01/17 12:00 Room Air 06/01/17 11:23 37.1 78 20 142/73 (96) 96 Room Air 06/01/17 08:00 Room Air 06/01/17 07:14 37.1 81 20 133/64 (87) 93 Room Air 06/01/17 04:00 Room Air 06/01/17 03:18 36.9 78 16 133/76 (95) 94 Room Air 06/01/17 00:00 Room Air 05/31/17 23:22 37.0 93 20 127/64 (85) 96 Room Air Physical Exam General Appearance: WD/WN, no apparent distress Eyes: normal inspection, EOMI Neck: supple, no adenopathy Respiratory/Chest: lungs clear, normal breath sounds, no respiratory distress Cardiovascular: regular rate, rhythm, no edema, no murmur Abdomen: normal bowel sounds, non tender, soft Extremities: no pedal edema, no calf tenderness Neurologic/Psychiatric: no motor/sensory deficits, alert, normal mood/affect Skin: no rash Lymphatic: no adenopathy Laboratory Results Last 24 Hours Test 05/31/17 23:17 06/01/17 05:59 06/01/17 07:26 06/01/17 11:21 Bedside Glucose 110 mg/dl 114 mg/dl 201 mg/dl White Blood Count 10.63 K/uL Red Blood Count 3.26 M/uL Hemoglobin 9.8 g/dL Hematocrit 30.6 % Mean Corpuscular Volume 93.9 fL Mean Corpuscular Hemoglobin 30.1 pg Mean Corpuscular Hemoglobin Concent 32.0 g/dl RDW Standard Deviation 48.6 fL RDW Coefficient of Variation 14.2 % Platelet Count 189 K/uL Mean Platelet Volume 11.9 fL Sodium Level 143 mmol/L Potassium Level 4.1 mmol/L Chloride Level 111 mmol/L Carbon Dioxide Level 24 mmol/L Anion Gap 8.0 mmol/L Blood Urea Nitrogen 43 mg/dl Creatinine 1.60 mg/dl Est Creatinine Clear Calc Drug Dose 37.4 ml/min Estimated GFR () 44.9 Estimated GFR (Non- 38.7 BUN/Creatinine Ratio 27.1 Random Glucose 122 mg/dl Calcium Level 8.7 mg/dl Test 06/01/17 14:32 06/01/17 16:34 06/01/17 20:34 Hemoglobin 9.7 g/dL Hematocrit 29.5 % Bedside Glucose 137 mg/dl 224 mg/dl Assessment and Plan 87 y/o M Hx MS, DM, HTN who presented with an acute GI bleed and hematemesis. GI bleed with hematemesis - On tele, continue until GI see's pt. May be stable for transfer to tele later this afternoon. - Hgb has decreased form 13.5 to 9.5 at time of admit, now s/p 1 U PRBCs, Hgb improved to 10.3, slightly trended downward to 9.8, H/H q8 hr for now. - GI following the case. - Liquid diet for now no EGD per Gi until saturday, only in case if acute GI bleed or drop of Hgb. - protonix drip. - PT/OT once GI bleed stable - NSS @ 100 ml/hr continuous for now DM II - ISS with accuchecks Q6h while npo/achs with diet. Multiple Sclerosis - currently treated with Fingolimod - resume following hospitalization - takes chronic prednisone but unsure of the reason ( I assume its for MS) - dosage and time length unknown but pt will ask his . She will be here this morning. I have asked the nursing staff to call me if she arrives with the information. Pt gets meds from multiple pharmacies and does not know who prescribes it. 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 Baseline appears to be 1.7-1.9 - Cont IVFs DVT ppx: Teds, scds, no chemical anticoagulation with GI bleed Disposition: From home and lives with , discharge when medically stable Continued [facility] stay due to: multiple IV medications needed Discharge planning: home with home health
[2017-06-01 23:00] LABS: HEMATOCRIT 28.8 % (42-52)
[2017-06-01 23:26] VITALS: BP 103/64; PULSE 77; TEMP 36.8; O2SAT 95
[2017-06-02] VITALS (12 sets, daily range): BP systolic 104–159; BP diastolic 56–81; PULSE 71–84; TEMP 36.3–37; O2SAT 93–98
[2017-06-02] MEDS: PANTOprazole INJ 40 MG in DEXTROSE 5% 100ML IV SCH ×3 (04:14→13:34)
[2017-06-02 07:02] LABS: BASO % 0.1 %; BASO ABS # 0.01 K/uL (0-0.2); COMPLETE YES; EOS % 2.3 %; HEMATOCRIT 28.7 % (42-52); IG% 0.3 %; LYMPH % 5.3 %; MEAN CELL VOLUME 94.1 fL (80-100); MEAN CORPUSCULAR HEMOGLOBIN 30.8 pg (25-34); MEAN CORPUSCULAR HGB CONC 32.8 g/dl (32-36); MEAN PLATELET VOLUME 10.9 fL (7.4-10.4); MONO % 8.7 %; NEUT % 83.3 %; PLATELET COUNT 174 K/uL (130-400); RED BLOOD COUNT 3.05 M/uL (4.7-6.1); WHITE BLOOD COUNT 7.48 K/uL (4.8-10.8)
[2017-06-02 07:36] LABS: BUN/CREATININE RATIO 15.5 (10-20); CALCIUM 8.5 mg/dl (8.5-10.1); CREATININE 1.6 mg/dl (0.60-1.40); POTASSIUM 4.1 mmol/L (3.5-5.1)
[2017-06-02] MEDS: FINGOLIMOD HCL 0.5 MG PO SCH (07:37)
[2017-06-02] MEDS: INSULIN ASPART 100 UNITS/ML 3 ML PEN SC SCH ×4 (07:47→21:27)
[2017-06-02] MEDS: ONDANSETRON INJ 2 MG/ML 2 ML VIAL IV PRN (08:37)
[2017-06-02] MEDS ORDERED: MoRPHine SULFATE 2 MG/ML CARP ONE (11:36)
[2017-06-02] MEDS ORDERED: NURSING VERBAL MED ORDER ONE (11:45)
[2017-06-02 14:25] LABS: HEMATOCRIT 30.6 % (42-52)
--- NOTE | 2017-06-02 14:26 | Gastroenterology Progress Note ---
Progress Note Date of Service: Jun 02, 2017 Subjective Pt evaluation today including: conversation w/ patient, conversation w/ family ( and daughter), physical exam, chart review, lab review, review of studies , review of inpatient medication list CC f/u melena HPI black stools yesterday 1400 and 1999. None since. Hgb drifting slightly. Has epigastric pain and given pain med but states no different than on admit. Review of Systems Respiratory: No shortness of breath Cardiac: No chest pain Medications Current Inpatient Medications Medications (Trade) Dose Ordered Sig/Terrance Route Start Time Stop Time Status Last Admin Dose Admin Ondansetron HCl (Zofran Inj) 4 mg Q6H PRN IV 05/30/17 21:45 06/29/17 21:44 06/02/17 08:37 4 MG Glucose (Glucose 40% Gel) 15-30 GRAMS 15 GRAMS... UD PRN PO 05/30/17 22:00 06/29/17 21:59 Glucose (Glucose Chew Tab) 4-8 Tablets 4 Tabl... UD PRN PO 05/30/17 22:00 06/29/17 21:59 Dextrose (Dextrose 50% 50ML Syringe) 25-50ML OF 50% DW IV FOR... UD PRN IV 05/30/17 22:00 06/29/17 21:59 Glucagon (Glucagon Inj) 1 mg UD PRN SQ 05/30/17 22:00 06/29/17 21:59 Pantoprazole Sodium 40 mg/ Dextrose 100 ml @ 20 mls/hr Q5H IV 05/31/17 02:30 06/30/17 02:29 06/02/17 13:34 20 MLS/HR Lorazepam (Ativan Tab) 0.5 mg Q6HWA PRN PO 05/31/17 18:15 06/30/17 18:14 05/31/17 19:50 0.5 MG Insulin Aspart (novoLOG ASPART) SLIDING SCALE G... ACHS SC 06/01/17 11:30 07/01/17 11:29 06/02/17 11:45 2 UNITS Objective Vital Signs Date Time Temp Pulse Resp B/P (MAP) Pulse Ox O2 Delivery O2 Flow Rate FiO2 06/02/17 12:28 36.7 73 20 115/70 95 Room Air 06/02/17 12:00 Room Air 06/02/17 11:28 36.3 75 20 159/79 (105) 95 Room Air 06/02/17 08:00 Room Air 06/02/17 07:12 36.7 73 20 115/70 (85) Room Air 06/02/17 04:00 Room Air 06/02/17 03:37 36.8 78 20 128/68 (88) 95 Room Air 06/02/17 00:00 Room Air 06/01/17 23:26 36.8 77 18 103/64 (77) Room Air 06/01/17 20:00 Room Air 06/01/17 19:46 37.0 79 18 121/71 (88) 95 Room Air 06/01/17 16:20 36.8 76 18 123/70 (87) 97 Nasal Cannula 06/01/17 16:00 Room Air Physical Exam General Appearance: WD/WN, no apparent distress Respiratory/Chest: lungs clear, no respiratory distress Cardiovascular: regular rate, rhythm Abdomen: normal bowel sounds, non tender, soft, no organomegaly Laboratory Results Last 24 Hours Test 06/01/17 14:32 06/01/17 16:34 06/01/17 20:34 06/01/17 22:26 Hemoglobin 9.7 g/dL 9.4 g/dL Hematocrit 29.5 % 28.8 % Bedside Glucose 137 mg/dl 224 mg/dl Test 06/02/17 06:42 06/02/17 11:26 06/02/17 14:11 White Blood Count 7.48 K/uL Red Blood Count 3.05 M/uL Hemoglobin 9.4 g/dL Hematocrit 28.7 % Mean Corpuscular Volume 94.1 fL Mean Corpuscular Hemoglobin 30.8 pg Mean Corpuscular Hemoglobin Concent 32.8 g/dl Platelet Count 174 K/uL Mean Platelet Volume 10.9 fL Neutrophils (%) (Auto) 83.3 % Lymphocytes (%) (Auto) 5.3 % Monocytes (%) (Auto) 8.7 % Eosinophils (%) (Auto) 2.3 % Basophils (%) (Auto) 0.1 % Neutrophils # (Auto) 6.23 K/uL Lymphocytes # (Auto) 0.40 K/uL Monocytes # (Auto) 0.65 K/uL Eosinophils # (Auto) 0.17 K/uL Basophils # (Auto) 0.01 K/uL RDW Standard Deviation 47.5 fL RDW Coefficient of Variation 13.9 % Immature Granulocyte % (Auto) 0.3 % Immature Granulocyte # (Auto) 0.02 K/uL Sodium Level 140 mmol/L Potassium Level 4.1 mmol/L Chloride Level 107 mmol/L Carbon Dioxide Level 26 mmol/L Anion Gap 7.0 mmol/L Blood Urea Nitrogen 25 mg/dl Creatinine 1.60 mg/dl Est Creatinine Clear Calc Drug Dose 37.2 ml/min Estimated GFR () 44.9 Estimated GFR (Non- 38.7 BUN/Creatinine Ratio 15.5 Random Glucose 186 mg/dl Calcium Level 8.5 mg/dl Total Bilirubin 0.8 mg/dl Aspartate Amino Transf (AST/SGOT) 15 U/L Alanine Aminotransferase (ALT/SGPT) 18 U/L Alkaline Phosphatase 85 U/L Total Protein 5.9 gm/dl Albumin 3.0 gm/dl Globulin 2.9 gm/dl Albumin/Globulin Ratio 1.0 Bedside Glucose 206 mg/dl Assessment and Plan melena--likely PUD from ASA use---Continue PPI drip. H and H slight drift. Had black stools ongoing yesterday so this am made NPO for EGD today. Given 5 pm as approx time for EGD. Proc and risks explained to patient, and daughter which include but not limited to medication reaction, bleeding, perforation, aspiration. epigastric pain--benign abdomen--can be from process causing bleeding. nausea--continue antemetics acute blood loss anemia--follow H and H. Hematemesis--none today. Mild bowel thickening AC on CT---melena likely from upper GI tract pathology given hematemesis----ascending colon can be evaluated electively unless the EGD unrevealing as to cause of bleeding.
--- NOTE | 2017-06-02 14:27 | Progress Note ---
Subjective Date of Service: Jun 02, 2017. Subjective Pt evaluation today including: conversation w/ patient, physical exam, lab review, review of inpatient medication list Pain: no pain Voiding: elliott catheter in place Pt is c/o of epigastric pain, and had 1 episode of dark hebert stool last evening , Gi is informed, possible endoscopy today. Problem List Medical Problems: (1) Upper GI bleed Status: Acute Review of Systems Abdomen: + pain, + nausea All Other Systems: Reviewed and Negative (except abdmen) Medications Medications (Trade) Dose Ordered Sig/Terrance Route Start Time Stop Time Status Last Admin Dose Admin Morphine Sulfate (MoRPHine SULFATE INJ) 2 mg STK-MED ONCE .ROUTE 06/02/17 11:36 06/02/17 11:37 DC 06/02/17 11:39 1 MG Objective Vital Signs Date Time Temp Pulse Resp B/P (MAP) Pulse Ox O2 Delivery O2 Flow Rate FiO2 06/02/17 12:28 36.7 73 20 115/70 95 Room Air 06/02/17 12:00 Room Air 06/02/17 11:28 36.3 75 20 159/79 (105) 95 Room Air 06/02/17 08:00 Room Air 06/02/17 07:12 36.7 73 20 115/70 (85) 95 Room Air 06/02/17 04:00 Room Air 06/02/17 03:37 36.8 78 20 128/68 (88) 95 Room Air 06/02/17 00:00 Room Air 06/01/17 23:26 36.8 77 18 103/64 (77) 95 Room Air 06/01/17 20:00 Room Air 06/01/17 19:46 37.0 79 18 121/71 (88) 95 Room Air 06/01/17 16:20 36.8 76 18 123/70 (87) 97 Nasal Cannula 06/01/17 16:00 Room Air Physical Exam General Appearance: no apparent distress Neck: supple, no adenopathy Respiratory/Chest: lungs clear, no respiratory distress Cardiovascular: regular rate, rhythm, no edema, no JVD, no murmur Abdomen: normal bowel sounds, soft, + pertinent finding (epigastric abd pain) Laboratory Results Last 24 Hours Test 06/01/17 14:32 06/01/17 16:34 06/01/17 20:34 06/01/17 22:26 Hemoglobin 9.7 g/dL 9.4 g/dL Hematocrit 29.5 % 28.8 % Bedside Glucose 137 mg/dl 224 mg/dl Test 06/02/17 06:42 06/02/17 11:26 06/02/17 14:11 White Blood Count 7.48 K/uL Red Blood Count 3.05 M/uL Hemoglobin 9.4 g/dL Hematocrit 28.7 % Mean Corpuscular Volume 94.1 fL Mean Corpuscular Hemoglobin 30.8 pg Mean Corpuscular Hemoglobin Concent 32.8 g/dl Platelet Count 174 K/uL Mean Platelet Volume 10.9 fL Neutrophils (%) (Auto) 83.3 % Lymphocytes (%) (Auto) 5.3 % Monocytes (%) (Auto) 8.7 % Eosinophils (%) (Auto) 2.3 % Basophils (%) (Auto) 0.1 % Neutrophils # (Auto) 6.23 K/uL Lymphocytes # (Auto) 0.40 K/uL Monocytes # (Auto) 0.65 K/uL Eosinophils # (Auto) 0.17 K/uL Basophils # (Auto) 0.01 K/uL RDW Standard Deviation 47.5 fL RDW Coefficient of Variation 13.9 % Immature Granulocyte % (Auto) 0.3 % Immature Granulocyte # (Auto) 0.02 K/uL Sodium Level 140 mmol/L Potassium Level 4.1 mmol/L Chloride Level 107 mmol/L Carbon Dioxide Level 26 mmol/L Anion Gap 7.0 mmol/L Blood Urea Nitrogen 25 mg/dl Creatinine 1.60 mg/dl Est Creatinine Clear Calc Drug Dose 37.2 ml/min Estimated GFR () 44.9 Estimated GFR (Non- 38.7 BUN/Creatinine Ratio 15.5 Random Glucose 186 mg/dl Calcium Level 8.5 mg/dl Total Bilirubin 0.8 mg/dl Aspartate Amino Transf (AST/SGOT) 15 U/L Alanine Aminotransferase (ALT/SGPT) 18 U/L Alkaline Phosphatase 85 U/L Total Protein 5.9 gm/dl Albumin 3.0 gm/dl Globulin 2.9 gm/dl Albumin/Globulin Ratio 1.0 Bedside Glucose 206 mg/dl Assessment and Plan 87 y/o M Hx MS, DM, HTN who presented with an acute GI bleed and hematemesis. GI bleed with hematemesis - On tele, continue until GI see's pt. May be stable for transfer to tele later this afternoon. - Hgb has decreased form 13.5 to 9.5 at time of admit, now s/p 1 U PRBCs, Hgb improved to 10.3, slightly trended downward to 9.8 and now 9.3, H/H q8 hr for now. - GI following the case and aware of Hgb - Possible EGD today - Clinically stable, no dark hebert stool since last night - protonix drip. - PT/OT once GI bleed stable - NSS @ 100 ml/hr continuous for now DM II - ISS with accuchecks Q6h while npo/achs with diet. Multiple Sclerosis - currently treated with Fingolimod - resume following hospitalization - takes chronic prednisone but unsure of the reason ( I assume its for MS) - dosage and time length unknown but pt will ask his . She will be here this morning. I have asked the nursing staff to call me if she arrives with the information. Pt gets meds from multiple pharmacies and does not know who prescribes it. 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 Baseline appears to be 1.7-1.9 - Cont IVFs DVT ppx: Teds, scds, no chemical anticoagulation with GI bleed Disposition: From home and lives with , discharge when medically stable Continued [facility] stay due to: multiple IV medications needed Discharge planning: home with home health, uncertain
[2017-06-02] MEDS ORDERED: MIDAZOLAM HCL 1 MG/ML 2ML VIAL ONE (17:22)
[2017-06-02] MEDS ORDERED: ATROPINE SULFATE 0.1 MG/ML 5ML SYR IV PRN (17:30)
[2017-06-02] MEDS ORDERED: FENTANYL CITRATE INJ 50 MCG/1 ML 2 ML VIAL IV PRN (17:30)
[2017-06-02] MEDS ORDERED: ONDANSETRON INJ 2 MG/ML 2 ML VIAL IV PRN (17:30)
[2017-06-02] MEDS ORDERED: PROPOFOL IV EMULSION 10 MG/ML 20 ML VIAL IV ONE (18:02)
[2017-06-02] MEDS ORDERED: LIDOCAINE HCL 2% 2 ML VIAL (20MG/ML) ONE (18:02)
--- NOTE | 2017-06-02 18:21 | GI REPORT ---
Procedure Date: 06/02/2017 5:23 PM Procedure: Upper GI endoscopy Indications: Hematemesis, Melena Medicines: Monitored Anesthesia Care Complications: No immediate complications. Estimated blood loss: Minimal. Estimated Blood Loss: Estimated blood loss was minimal. Procedure: Pre-Anesthesia Assessment: - The risks and benefits of the procedure and the sedation options and risks were discussed with the patient. All questions were answered and informed consent was obtained. - Patient identification and proposed procedure were verified prior to the procedure by the physician, the nurse, the anesthesiologist and the wheel alignment technician. The procedure was verified in the procedure room. - Procedure and risks explained to patient which include but not limited to medication reaction, bleeding, perforation, aspiration , and missed lesions. Judicious gas insufflation was used and gas removal done on the way out. The lumen was always visualized when advancing the scope. Prep was good. Washes and suctioning used as needed to get good visualization of the mucosa. Retroflexion to look at the fundus and cardia of the stomach and GE junction was done. After obtaining informed consent, the endoscope was passed under direct vision. Throughout the procedure, the patient's blood pressure, pulse, and oxygen saturations were monitored continuously. The Scope was introduced through the mouth, and advanced to the second part of duodenum. The upper GI endoscopy was accomplished without difficulty. The patient tolerated the procedure well. Findings: The Z-line was irregular and was found 41 cm from the incisors. The examined duodenum was normal. A large, fungating, infiltrative and ulcerated, partially circumferential (involving one-third of the lumen circumference) mass with no active bleeding was found in the gastric fundus. Multiple biopsies were taken with a cold forceps for histology. Estimated blood loss was minimal. A small diverticulum was found in the gastric body. The exam was otherwise without abnormality. Prep was good and no fresh nor old blood noted except self limited post biopsy. Impression: - Z-line irregular, 41 cm from the incisors. - Normal examined duodenum. 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 Biopsied. - Gastric diverticulum. - The examination was otherwise normal. Recommendation: - Return patient to hospital [facility] for ongoing care. - Check Chest CT for metastases. A/P CT was negative. Contineu PPI po bid. Mass explains the melena and hematemesis. Christopher Callaway M.D. Christopher Callaway MD 06/02/2017 6:21:25 PM This report has been signed electronically. Note Initiated On: 06/02/2017 5:23 PM I attest to the content of the Intraoperative Record and orders documented therein, exceptions below
--- NOTE | 2017-06-02 18:36 | Anesthesiology Progress Note ---
Anesthesia Post Op Note Date & Time Jun 02, 2017 at 18:36 Vital Signs Pain Intensity: 0 Vital Signs Past 12 Hours Date Time Temp Pulse Resp B/P (MAP) Pulse Ox O2 Delivery O2 Flow Rate FiO2 06/02/17 18:21 77 15 06/02/17 18:21 77 15 134/83 100 06/02/17 18:16 77 19 06/02/17 18:16 77 19 138/79 99 06/02/17 18:12 148/87 06/02/17 18:11 78 99 06/02/17 18:11 78 06/02/17 18:11 36.2 77 16 148/87 100 Mask 5 06/02/17 16:00 Room Air 06/02/17 15:35 36.3 71 18 127/64 (85) 95 Room Air 06/02/17 12:28 36.7 73 20 115/70 95 Room Air 06/02/17 12:00 Room Air 06/02/17 11:28 36.3 75 20 159/79 (105) 95 Room Air 06/02/17 08:00 Room Air 06/02/17 07:12 36.7 73 20 115/70 (85) 95 Room Air Notes Mental Status: alert / awake / arousable, participated in evaluation Pt Amnestic to Procedure: Yes Nausea / Vomiting: adequately controlled Pain: adequately controlled Airway Patency, RR, SpO2: stable & adequate BP & HR: stable & adequate Hydration State: stable & adequate Anesthetic Complications: no major complications apparent
[2017-06-02] MEDS: PANTOprazole SOD 40 MG TAB PO SCH (20:21)
[2017-06-02 21:46] LABS: HEMATOCRIT 29.7 % (42-52)
[2017-06-03] VITALS (7 sets, daily range): BP systolic 122–165; BP diastolic 68–85; PULSE 74–102; TEMP 36.4–36.9; O2SAT 93–98
[2017-06-03 06:38] LABS: BASO % 0.1 %; BASO ABS # 0.01 K/uL (0-0.2); COMPLETE YES; EOS % 2.9 %; HEMATOCRIT 29.7 % (42-52); IG% 0.4 %; LYMPH % 8.7 %; LYMPH ABS # 0.62 K/uL (1.2-3.4); MEAN CELL VOLUME 94.3 fL (80-100); MEAN CORPUSCULAR HEMOGLOBIN 30.8 pg (25-34); MEAN CORPUSCULAR HGB CONC 32.7 g/dl (32-36); MEAN PLATELET VOLUME 10.7 fL (7.4-10.4); MONO % 7.3 %; NEUT % 80.6 %; PLATELET COUNT 191 K/uL (130-400); RED BLOOD COUNT 3.15 M/uL (4.7-6.1); WHITE BLOOD COUNT 7.16 K/uL (4.8-10.8)
[2017-06-03 07:20] LABS: BUN/CREATININE RATIO 12.8 (10-20); CALCIUM 8.7 mg/dl (8.5-10.1); CREATININE 1.7 mg/dl (0.60-1.40); POTASSIUM 4.1 mmol/L (3.5-5.1)
[2017-06-03] MEDS: PANTOprazole SOD 40 MG TAB PO SCH ×2 (08:07→16:53)
[2017-06-03] MEDS: FINGOLIMOD HCL 0.5 MG PO SCH (08:08)
[2017-06-03] MEDS: INSULIN ASPART 100 UNITS/ML 3 ML PEN SC SCH ×4 (08:10→20:51)
--- NOTE | 2017-06-03 08:59 | DIAGNOSTIC IMAGING REPORT ---
(CHEST) THORAX WITHOUT CLINICAL HISTORY: 87 years-old Male presenting with gastric mass, rule out mets. TECHNIQUE: Multidetector CT of the chest was performed without the use of intravenous contrast. IV contrast: None. COMPARISON: Chest x-ray from 02/07/[address] of the abdomen and pelvis on 05/30/2017. CT DOSE: The estimated cumulative dose is 481.47 mGy.cm. FINDINGS: Investigator Vice topogram: Unremarkable. On soft tissue windows, calcified nodule noted at the inferior pole of the left lobe of the thyroid. No axillary, supraclavicular, or mediastinal lymphadenopathy. Evaluation for hilar and lymphadenopathy is limited due to lack of intravenous contrast. Atherosclerosis of the aortic arch. Normal heart size. Aortic valve and coronary artery calcification. Subtle calcification of the papillary muscles may also be present. No pericardial or pleural effusion. The upper abdomen demonstrates mild pancreatic parenchymal atrophy. Small hyperdense focus near the cystic duct may represent a tiny gallstone. No focal gastric mass noted. On lung windows, prominent subpleural fat along the right lateral lung. Subtle emphysematous changes at the apices. Old calcified granuloma noted near the right apex. 5 mm subpleural solid pulmonary nodule noted in the right middle lobe (series 2 image 38). Bandlike opacities in the right lower lobe near the major fissure represent scarring or atelectasis. 3-4 mm subpleural solid pulmonary nodule in the lingula (series 2 image 44). No other focal infiltrate. Airways patent. Mild bronchial wall thickening asymmetrically in the right upper lobe. On bone windows, degenerative changes of the thoracic spine. Few tiny nonspecific lucent lesions noted in several of the upper thoracic vertebral bodies, which are marked on the images. Attention on follow-up IMPRESSION: 1. No convincing evidence of intrathoracic metastases or lymphadenopathy. 2. Two nonspecific solid pulmonary nodules measuring less than 6 mm. Attention on follow-up. 3. Mild emphysema and bronchial wall thickening. Electronically signed by: Miguelito Costa 06/03/2017 8:58 AM Dictated Date/Time: 06/03/2017 8:38 AM
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
[2017-06-03] MEDS ORDERED: PRT40 PO (14:53)
--- NOTE | 2017-06-03 14:59 | Discharge Instructions ---
Discharge Instructions Date of Service Jun 03, 2017. Admission Reason for Admission: Hematemesis (vomiting blood) Discharge Discharge Diagnosis / Problem: Gastric mass, GI bleeding, acute blood loss anemia Discharge Goals Goal(s): Improve function, Therapeutic intervention (plan for surgical resection) Activity Recommendations Activity Limitations: resume your previous activity Lifting Limitations: none Exercise/Sports Limitations: as tolerated May Resume Sexual Activity: when tolerated Shower/Bathe: no limitations Driving or Machine Use: no limitations . Instructions / Follow-Up Instructions / Follow-Up Medications: - PROTONIX: replaced omeprazole, take twice a day until after surgery - FLOMAX: relaxes the prostate and helps you void easier, continue to take once a day if you notice that you are dizzy when you stand up, this is a side effect, discuss with Dr. King - ASPIRIN: continue to hold until surgery to prevent further bleeding Gastric mass: biopsies taken, will take a few more days for final results. As you discussed with Dr. Cordero, he would like to see you in the office next Saturday to discuss setting up an elective resection/gastrectomy in the next 2-3 weeks. He will have final pathology back at that time. Acute blood loss anemia: you were transfused packed red blood cells and your blood counts have been stable, actually they are trending upward and no further signs of bleeding Urinary retention: elliott catheter initially placed when you had 500mL of urine in bladder, catheter removed yesterday. This AM you were voiding better with 150mL, then 200mL and then 250mL of urine. Continue to take Flomax to relax the prostate. Follow up with Dr. King in one week, if urinary issues persist you could be referred to urology as outpatient. FOLLOW UP - Dr. Cordero next Saturday, his office should be in touch, please contact if you do not hear from them, - Please follow up with Dr. King in one week to discuss hospitalization and urinary retention issues Current Hospital Diet Patient's current hospital diet: Diabetes Type 2 Diet Discharge Diet Recommended Diet: Diabetes Type 2 Diet Procedures Procedures Performed: Esophagogastroduodenoscopy with biopsy Pending Studies Studies pending at discharge: yes List of pending studies: gastric mass biopsy Medical Emergencies . Who to Call and When: Medical Emergencies: If at any time you feel your situation is an emergency, please call 911 immediately. . Non-Emergent Contact Non-Emergency issues call your: Primary Care Provider, Surgeon Call Non-Emergent contact if: you have any medication questions . . "Provider Documentation" section prepared by Alex Garza. . VTE Core Measure Inpt VTE Proph given/why not?: SCD's [place] Drug Monitoring Program Search Results: no issues identified
--- NOTE | 2017-06-03 16:25 | Gastroenterology Progress Note ---
Progress Note Date of Service: Jun 03, 2017 Subjective Pt evaluation today including: conversation w/ patient, conversation w/ family ( and daughter) CC f/u gastric mass HPI No abd pain. Tolerating po. Stools are more normal colored. Review of Systems Respiratory: No shortness of breath Cardiac: No chest pain Medications Current Inpatient Medications Medications (Trade) Dose Ordered Sig/Terrance Route Start Time Stop Time Status Last Admin Dose Admin Ondansetron HCl (Zofran Inj) 4 mg Q6H PRN IV 05/30/17 21:45 06/29/17 21:44 06/02/17 08:37 4 MG Glucose (Glucose 40% Gel) 15-30 GRAMS 15 GRAMS... UD PRN PO 05/30/17 22:00 06/29/17 21:59 Glucose (Glucose Chew Tab) 4-8 Tablets 4 Tabl... UD PRN PO 05/30/17 22:00 06/29/17 21:59 Dextrose (Dextrose 50% 50ML Syringe) 25-50ML OF 50% DW IV FOR... UD PRN IV 05/30/17 22:00 06/29/17 21:59 Glucagon (Glucagon Inj) 1 mg UD PRN SQ 05/30/17 22:00 06/29/17 21:59 Lorazepam (Ativan Tab) 0.5 mg Q6HWA PRN PO 05/31/17 18:15 06/30/17 18:14 05/31/17 19:50 0.5 MG Insulin Aspart (novoLOG ASPART) SLIDING SCALE G... ACHS SC 06/01/17 11:30 07/01/17 11:29 06/03/17 12:13 2 UNITS Pantoprazole Sodium (Protonix Tab) 40 mg BIDM PO 06/02/17 19:00 07/02/17 18:59 06/03/17 08:07 40 MG Objective Vital Signs Date Time Temp Pulse Resp B/P (MAP) Pulse Ox O2 Delivery O2 Flow Rate FiO2 06/03/17 16:01 36.4 77 18 137/79 (98) 98 Room Air 06/03/17 11:44 36.8 80 20 144/76 (98) 98 Room Air 06/03/17 11:37 36.9 79 19 165/83 (110) 98 Room Air 06/03/17 11:35 Room Air 06/03/17 11:19 36.9 74 18 93 5.0 06/03/17 08:00 Room Air 06/03/17 07:15 36.9 74 18 128/68 (88) 93 Room Air 06/03/17 04:00 Room Air 06/03/17 03:53 36.9 75 19 122/69 (86) 96 Room Air 06/03/17 00:00 Room Air 06/02/17 23:07 37.0 75 20 104/58 (73) 93 Room Air 06/02/17 20:40 84 114/66 (82) 94 Room Air 06/02/17 20:10 84 122/67 (85) 93 Room Air 06/02/17 20:00 Room Air 06/02/17 19:40 79 140/56 (84) 95 Room Air 06/02/17 19:25 80 136/77 (96) 97 Room Air 06/02/17 19:10 78 134/80 (98) 98 Room Air 06/02/17 18:55 36.9 79 18 155/81 (105) 94 Mask 5.0 06/02/17 18:38 36.2 06/02/17 18:32 77 18 06/02/17 18:32 77 18 99 06/02/17 18:31 131/81 06/02/17 18:27 77 19 99 06/02/17 18:27 77 19 06/02/17 18:26 144/73 06/02/17 18:22 78 19 06/02/17 18:22 78 19 100 06/02/17 18:21 77 15 06/02/17 18:21 77 15 134/83 100 06/02/17 18:16 77 19 06/02/17 18:16 77 19 138/79 99 06/02/17 18:12 148/87 06/02/17 18:11 78 99 06/02/17 18:11 78 06/02/17 18:11 36.2 77 16 148/87 100 Mask 5 Physical Exam General Appearance: WD/WN, no apparent distress Respiratory/Chest: lungs clear, no respiratory distress Cardiovascular: no murmur Abdomen: normal bowel sounds, non tender, soft, no organomegaly Laboratory Results Last 24 Hours Test 06/02/17 16:33 06/02/17 18:29 06/02/17 20:40 06/02/17 21:34 Bedside Glucose 154 mg/dl 131 mg/dl 236 mg/dl Hemoglobin 9.6 g/dL Hematocrit 29.7 % Test 06/03/17 06:11 06/03/17 06:25 06/03/17 11:08 06/03/17 14:25 Bedside Glucose 164 mg/dl 228 mg/dl White Blood Count 7.16 K/uL Red Blood Count 3.15 M/uL Hemoglobin 9.7 g/dL Hematocrit 29.7 % Mean Corpuscular Volume 94.3 fL Mean Corpuscular Hemoglobin 30.8 pg Mean Corpuscular Hemoglobin Concent 32.7 g/dl Platelet Count 191 K/uL Mean Platelet Volume 10.7 fL Neutrophils (%) (Auto) 80.6 % Lymphocytes (%) (Auto) 8.7 % Monocytes (%) (Auto) 7.3 % Eosinophils (%) (Auto) 2.9 % Basophils (%) (Auto) 0.1 % Neutrophils # (Auto) 5.77 K/uL Lymphocytes # (Auto) 0.62 K/uL Monocytes # (Auto) 0.52 K/uL Eosinophils # (Auto) 0.21 K/uL Basophils # (Auto) 0.01 K/uL RDW Standard Deviation 47.1 fL RDW Coefficient of Variation 13.7 % Immature Granulocyte % (Auto) 0.4 % Immature Granulocyte # (Auto) 0.03 K/uL Sodium Level 141 mmol/L Potassium Level 4.1 mmol/L Chloride Level 105 mmol/L Carbon Dioxide Level 28 mmol/L Anion Gap 8.0 mmol/L Blood Urea Nitrogen 22 mg/dl Creatinine 1.70 mg/dl Est Creatinine Clear Calc Drug Dose 34.5 ml/min Estimated GFR () 41.7 Estimated GFR (Non- 36.0 BUN/Creatinine Ratio 12.8 Random Glucose 168 mg/dl Calcium Level 8.7 mg/dl Test 06/03/17 14:28 Hemoglobin 10.9 g/dL Hematocrit 34.0 % Assessment and Plan Gastric mass--path pending and output surgery consult arranged. no evidence of mets on CT a/p nor Chest CT melena--from gastric mass resolved. epigastric pain--resolved nausea--continue antemetics acute blood loss anemia--improved Hematemesis-resolved Mild bowel thickening AC on CT---discussed wtih patient and family this may be nothing but cannot rule out serious pathology so at some point would need to do colonoscopy or BE so they should consider either of those.
--- NOTE | 2017-06-03 16:57 | Progress Note ---
Subjective Date of Service: Jun 03, 2017. Subjective Pt evaluation today including: conversation w/ patient, conversation w/ family , physical exam, lab review, review of studies, conversation w/ workday financials consultant, review of inpatient medication list Pain: no pain PO Intake: adequate Voiding: requires PRN straight cath elliott pulled, could not void, will need repeat elliott cath and go home with catheter d/w Dr. Cordero, plans to follow up outpatient reviewed labs, Hb trending up, Cr and electrolytes stable no pathology results at this point Problem List Medical Problems: (1) Upper GI bleed Status: Acute Review of Systems Male : + urinary frequency, + slowing stream All Other Systems: Reviewed and Negative Medications Current Inpatient Medications Medications (Trade) Dose Ordered Sig/Terrance Route Start Time Stop Time Status Last Admin Dose Admin Ondansetron HCl (Zofran Inj) 4 mg Q6H PRN IV 05/30/17 21:45 06/29/17 21:44 06/02/17 08:37 4 MG Glucose (Glucose 40% Gel) 15-30 GRAMS 15 GRAMS... UD PRN PO 05/30/17 22:00 06/29/17 21:59 Glucose (Glucose Chew Tab) 4-8 Tablets 4 Tabl... UD PRN PO 05/30/17 22:00 06/29/17 21:59 Dextrose (Dextrose 50% 50ML Syringe) 25-50ML OF 50% DW IV FOR... UD PRN IV 05/30/17 22:00 06/29/17 21:59 Glucagon (Glucagon Inj) 1 mg UD PRN SQ 05/30/17 22:00 06/29/17 21:59 Lorazepam (Ativan Tab) 0.5 mg Q6HWA PRN PO 05/31/17 18:15 06/30/17 18:14 05/31/17 19:50 0.5 MG Insulin Aspart (novoLOG ASPART) SLIDING SCALE G... ACHS SC 06/01/17 11:30 07/01/17 11:29 06/03/17 12:13 2 UNITS Pantoprazole Sodium (Protonix Tab) 40 mg BIDM PO 06/02/17 19:00 07/02/17 18:59 06/03/17 08:07 40 MG Objective Vital Signs Date Time Temp Pulse Resp B/P (MAP) Pulse Ox O2 Delivery O2 Flow Rate FiO2 06/03/17 16:01 36.4 77 18 137/79 (98) 98 Room Air 06/03/17 11:44 36.8 80 20 144/76 (98) 98 Room Air 06/03/17 11:37 36.9 79 19 165/83 (110) 98 Room Air 06/03/17 11:35 Room Air 06/03/17 11:19 36.9 74 18 93 5.0 06/03/17 08:00 Room Air 06/03/17 07:15 36.9 74 18 128/68 (88) 93 Room Air 06/03/17 04:00 Room Air 06/03/17 03:53 36.9 75 19 122/69 (86) 96 Room Air 06/03/17 00:00 Room Air 06/02/17 23:07 37.0 75 20 104/58 (73) 93 Room Air 06/02/17 20:40 84 114/66 (82) 94 Room Air 06/02/17 20:10 84 122/67 (85) 93 Room Air 06/02/17 20:00 Room Air 06/02/17 19:40 79 140/56 (84) 95 Room Air 06/02/17 19:25 80 136/77 (96) 97 Room Air 06/02/17 19:10 78 134/80 (98) 98 Room Air 06/02/17 18:55 36.9 79 18 155/81 (105) 94 Mask 5.0 06/02/17 18:38 36.2 06/02/17 18:32 77 18 06/02/17 18:32 77 18 99 06/02/17 18:31 131/81 06/02/17 18:27 77 19 99 06/02/17 18:27 77 19 06/02/17 18:26 144/73 06/02/17 18:22 78 19 06/02/17 18:22 78 19 100 06/02/17 18:21 77 15 06/02/17 18:21 77 15 134/83 100 06/02/17 18:16 77 19 06/02/17 18:16 77 19 138/79 99 06/02/17 18:12 148/87 06/02/17 18:11 78 99 06/02/17 18:11 78 06/02/17 18:11 36.2 77 16 148/87 100 Mask 5 Physical Exam General Appearance: WD/WN, no apparent distress Neck: supple, no adenopathy, no JVD, trachea midline Respiratory/Chest: chest non-tender, lungs clear, normal breath sounds, no respiratory distress, no accessory muscle use Cardiovascular: regular rate, rhythm, no edema, no gallop, no JVD, no murmur Abdomen: normal bowel sounds, non tender, soft, no organomegaly Extremities: normal range of motion, non-tender, normal inspection, no pedal edema, no calf tenderness, pelvis stable 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, no motor/sensory deficits, alert, normal mood/affect, oriented x 3 Skin: normal color, warm/dry, no rash Laboratory Results Last 24 Hours Test 06/02/17 18:29 06/02/17 20:40 06/02/17 21:34 06/03/17 06:11 Bedside Glucose 131 mg/dl 236 mg/dl 164 mg/dl Hemoglobin 9.6 g/dL Hematocrit 29.7 % Test 06/03/17 06:25 06/03/17 11:08 06/03/17 11:52 06/03/17 14:25 White Blood Count 7.16 K/uL Red Blood Count 3.15 M/uL Hemoglobin 9.7 g/dL Hematocrit 29.7 % Mean Corpuscular Volume 94.3 fL Mean Corpuscular Hemoglobin 30.8 pg Mean Corpuscular Hemoglobin Concent 32.7 g/dl Platelet Count 191 K/uL Mean Platelet Volume 10.7 fL Neutrophils (%) (Auto) 80.6 % Lymphocytes (%) (Auto) 8.7 % Monocytes (%) (Auto) 7.3 % Eosinophils (%) (Auto) 2.9 % Basophils (%) (Auto) 0.1 % Neutrophils # (Auto) 5.77 K/uL Lymphocytes # (Auto) 0.62 K/uL Monocytes # (Auto) 0.52 K/uL Eosinophils # (Auto) 0.21 K/uL Basophils # (Auto) 0.01 K/uL RDW Standard Deviation 47.1 fL RDW Coefficient of Variation 13.7 % Immature Granulocyte % (Auto) 0.4 % Immature Granulocyte # (Auto) 0.03 K/uL Sodium Level 141 mmol/L Potassium Level 4.1 mmol/L Chloride Level 105 mmol/L Carbon Dioxide Level 28 mmol/L Anion Gap 8.0 mmol/L Blood Urea Nitrogen 22 mg/dl Creatinine 1.70 mg/dl Est Creatinine Clear Calc Drug Dose 34.5 ml/min Estimated GFR () 41.7 Estimated GFR (Non- 36.0 BUN/Creatinine Ratio 12.8 Random Glucose 168 mg/dl Calcium Level 8.7 mg/dl Bedside Glucose 228 mg/dl 224 mg/dl Test 06/03/17 14:28 06/03/17 16:33 Hemoglobin 10.9 g/dL Hematocrit 34.0 % Bedside Glucose 177 mg/dl Assessment and Plan 87 y/o M Hx MS, DM, HTN who presented with an acute GI bleed and hematemesis. GI bleed with hematemesis due to large gastric mass - transfer to medical today - Hb trending up after transfusion, no further signs of bleeding, Hb 10.7 today - EGD on 06/02, large mass, biopsies taken plan to follow up with Dr. Cordero next week to plan for resection CT A/P and chest no signs of metastatic disease - stop fluids Urinary retention: void trial today, not successfull, will need elliott catheter and go home with leg bag start Flomax DM II - novolog SS Multiple Sclerosis - currently treated with Fingolimod - resume following hospitalization - takes chronic prednisone but unsure of the reason ( I assume its for MS) - dosage and time length unknown but pt will ask his . She will be here this morning. I have asked the nursing staff to call me if she arrives with the information. Pt gets meds from multiple pharmacies and does not know who prescribes it. 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 Baseline appears to be 1.7-1.9 - stop fluids DVT ppx: Teds, scds, no chemical anticoagulation with GI bleed Disposition: From home and lives with , discharge when medically stable Continued [facility] stay due to: multiple IV medications needed Discharge planning: home with home health, uncertain
[2017-06-04 07:30] VITALS: BP 116/67; PULSE 84; TEMP 36.8; O2SAT 97
[2017-06-04 08:00] VITALS: O2SAT 97
[2017-06-04] MEDS ORDERED: TAMSULOSIN HCL 0.4 MG CAP PO ONE (08:00)
[2017-06-04] MEDS: PANTOprazole SOD 40 MG TAB PO SCH (08:11)
[2017-06-04] MEDS: FINGOLIMOD HCL 0.5 MG PO SCH (08:11)
[2017-06-04] MEDS: INSULIN ASPART 100 UNITS/ML 3 ML PEN SC SCH (08:24)
--- NOTE | 2017-06-04 08:39 | Surgery Progress Note ---
Surgery Progress Note Date of Service Jun 04, 2017. Subjective + feeling well began urinating overnight without elliott. denies abdominal pain. no nausea. silver diet. no more melena/hematemesis. Objective Vital Signs: Date Time Temp Pulse Resp B/P (MAP) Pulse Ox O2 Delivery O2 Flow Rate FiO2 06/04/17 00:00 Room Air 06/03/17 23:46 36.8 102 18 161/85 (110) 94 Room Air 06/03/17 16:01 36.4 77 18 137/79 (98) 98 Room Air 06/03/17 16:00 Room Air 06/03/17 11:44 36.8 80 20 144/76 (98) 98 Room Air 06/03/17 11:37 36.9 79 19 165/83 (110) 98 Room Air 06/03/17 11:35 Room Air 06/03/17 11:19 36.9 74 18 93 5.0 General Appearance: no apparent distress Head: normocephalic, atraumatic Neck: supple Respiratory/Chest: no respiratory distress, no accessory muscle use Abdomen: non tender, non distended, soft Extremities: non-tender, normal inspection Laboratory Results: Results Past 24 Hours Test 06/03/17 11:08 06/03/17 11:52 06/03/17 14:25 06/03/17 14:28 Range/Units Bedside Glucose 228 224 70-99 mg/dl Hemoglobin 10.9 14.0-18.0 g/dL Hematocrit 34.0 42-52 % Test 06/03/17 16:33 06/03/17 20:10 Range/Units Bedside Glucose 177 186 70-99 mg/dl Assessment & Plan gastric mass path pending ok for d/c from standpoint has appointment with me in one week to discuss path/tx options
[2017-06-04] MEDS ORDERED: TAMS0.4C38 PO (10:09)
[2017-06-04 10:50] VITALS: BP 116/67; PULSE 84; TEMP 36.8; O2SAT 97
--- NOTE | 2017-06-04 13:12 | Discharge Summary ---
Discharge Summary Date of Service Jun 04, 2017. Discharge Summary Admission Date: May 30, 2017 at 21:40 Discharge Date: Jun 04, 2017 Discharge Disposition: Home Principal Diagnosis: Gastric mass Problems/Secondary Diagnoses: GI bleed Acute blood loss anemia Urinary retention Multiple sclerosis Procedures: EGD 06/02 - large gastric mass, biopsies taken Consultations: Gastroenterology General surgery Medication Reconciliation New Medications: Tamsulosin Hcl (Flomax) 0.4 Mg Cap 1 CAP PO DAILY for 30 Days, #30 CAP 1 Refill Pantoprazole (Pantoprazole Sodium) 40 Mg Tab 40 MG PO BIDM, #60 TAB 3 Refills Continued Medications: Cholecalciferol (Vitamin D 1000 Unit) 1,000 Unit Cap 1000 INTER.UNIT PO DAILY, CAP Doxepin (Sinequan) 10 Mg Cap 10 MG PO HS, CAP Fingolimod Hcl (Gilenya) 0.5 Mg Cap 1 CAP PO DAILY Glimepiride (Glimepiride) 4 Mg Tab 1 TAB PO DAILY for 90 Days, #90 TAB 3 Refills Hctz/Lisinopril (Lisinopril/Hctz 10/12.5 Mg) 1 Ea Tab 1 TAB PO DAILY, TAB Ketoconazole (Topical) (Xolegel) 2 % Gel 1 APPLN TOP DAILY PRN for Pravastatin Sodium (Pravastatin Sodium) 40 Mg Tab 40 MG PO QPM Pyridoxine (Vitamin B6) 100 Mg Tab 100 MG PO DAILY, TAB Sildenafil Citrate (Viagra) 100 Mg Tab 100 MG PO WK, TAB Discontinued Medications: Aspirin (Aspirin Ec) 81 Mg Tab 81 MG PO Q2D Omeprazole (Prilosec) 20 Mg Capcr 20 MG PO DAILY, CAP Discharge Exam Patient was able to void this AM after trying to void all night. He voided 150cc, 200cc and then 250cc all this AM, no suprapubic pain. No melena, no epigastric pain. Discussed plan for follow up with Dr. Cordero next week. Discussed plan with patient's over the phone. Review of Systems: Constitutional: No fever, No chills, No sweats, No weight loss, No weakness , No fatigue, No problem reported Eyes: No worsening of vision, No eye pain, No redness, No discharge, No diplopia, No problem reported ENT: No hearing loss, No unusual epistaxis, No nasal symptoms, No sore throat, No tinnitus, No dental problems, No trouble swallowing, No problem reported Respiratory: No cough, No sputum, No wheezing, No shortness of breath, No dyspnea on exertion, No dyspnea at rest, No hemoptysis, No problem reported Cardiovascular: No chest pain, No orthopnea, No PND, No edema, No claudication, No palpitations, No problem reported Abdomen: No pain, No nausea, No vomiting, No diarrhea, No constipation, No GI bleeding, No problem reported Musculoskeletal: No joint pain, No muscle pain, No swelling, No calf pain, No problem reported Genitourinary - Male: + urinary frequency, No hematuria, No dysuria, No urinary urgency Neurologic: No memory loss, No paralysis, No weakness, No numbness/tingling , No vertigo, No balance problems, No problem reported Psychiatric: No depression symptoms, No anhedonism, No anxiety, No insomnia , No substance abuse, No problem reported Endocrine: No fatigue, No excessive thirst, No excessive urination, No problem reported Hematologic / Lymphatic: No abnormal bleeding/bruising, No clotting problems , No swollen lymph nodes, No night sweats, No problem reported Integumentary: No rash, No itch, No new/changing skin lesions, No color change, No bleeding, No problem reported Physical Exam: General Appearance: WD/WN, no apparent distress Eyes: normal inspection, EOMI, sclerae normal ENT: normal ENT inspection, hearing grossly normal, pharynx normal Neck: supple, no adenopathy, no JVD, trachea midline Respiratory/Chest: chest non-tender, lungs clear, normal breath sounds, no respiratory distress, no accessory muscle use Cardiovascular: regular rate, rhythm, no edema, no gallop, no JVD, no murmur , normal peripheral pulses Abdomen / GI: normal bowel sounds, non tender, soft, no organomegaly Extremities: normal inspection, no calf tenderness, normal capillary refill , no pedal edema, normal range of motion, pelvis stable 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 GI bleed with hematemesis due to large gastric mass - Hb trending up after transfusion, no further signs of bleeding, Hb 10.7 yesterday, stable - EGD on 06/02, large mass, biopsies taken plan to follow up with Dr. 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 Baseline appears to be 1.7-1.9 DVT ppx: Teds, scds, no chemical anticoagulation with GI bleed Disposition: d/c to home, follow up with Dr. Cordero next week, Dr. King in a week Total Time Spent: Greater than 30 minutes This includes examination of the patient, discharge planning, medication reconciliation, and communication with other providers. Discharge Instructions Please refer to the electronic Patient Visit Report (Discharge Instructions) for additional information. Follow-Up Dr. Cordero on 06/11 Dr. King in one week Additional Copies To Antwon Cordero D.O.; Miguelito King M.D.
--- NOTE | 2017-06-06 12:13 | EDITING REQUIRED CODING QUERY ---
PATHOLOGY To promote full compliance with coding requirements relating to patient care, physician participation is requested in all cases of medical biller/coder uncertainty. Please assist us with the question(s) below: Please review the Pathology report and please document any relevant diagnosis(es) below. Thank you. GLENIS Mcnair [facility] Diagnosis(es): gastric adenocarcinoma, moderately differentiated
== END 2017-06-04 11:23 | disposition home or self-care (01) | DRG 375 ==
LOC: EDBD 19:30 → C.EDA 19:31 → C.2T 21:40 → ENRESERV 22:01 → C.2T 06-02 18:36 → ENRESERV 06-03 10:54 → C.MS4W 06-03 11:42
PROVIDERS: ADMIT Internal Medicine; ATTEND Internal Medicine
PROC: 0DB68ZX Excision of Stomach, Via Natural or Artificial Opening Endoscopic, Diagnostic (ICD-10-PCS; principal; 2017-06-02 16:00)
DX: C16.1 Malignant neoplasm of fundus of stomach (principal); D62 Acute posthemorrhagic anemia; I12.9 Hypertensive chronic kidney disease with stage 1 through stage 4 chronic kidney disease, or unspecified chronic kidney disease; G35 Multiple sclerosis; N18.3 Chronic kidney disease, stage 3 (moderate); R33.9 Retention of urine, unspecified; Z88.2 Allergy status to sulfonamides; E78.5 Hyperlipidemia, unspecified; Z83.3 Family history of diabetes mellitus; Z79.82 Long term (current) use of aspirin

== ENCOUNTER 2017-06-27 08:50 | Inpatient (IN) | payer BC, OTHER ==
[2017-06-12 15:45] VITALS: BMI 28.0
[2017-06-27] VITALS (8 sets, daily range): BP systolic 110–164; BP diastolic 63–84; PULSE 87–115; TEMP 36.4–37.5; O2SAT 93–99; Ht 175.3 cm; Wt 85.9 kg
[~2017-06-27] VITALS: Ht 175.3 cm; Wt 85.9 kg
[~2017-06-27 08:50] MED LIST changes: -ASPEC81 PO; -CALCTAB5 PO; +CEFAZOLIN 2000 MG/60 ML D5W 60 ML IV SCH; -CHOL100010 PO; +CHOL100027 PO; -CPXI PO; +DOXE10CA PO; -DOXE50CA3 PO; +FING1CAP PO; +GLIM4TAB2 PO; +HEPARIN SOD 5000 UNIT/0.5 ML CARP SQ SCH; +KETO2GEL2 TOP; +LACTATED RINGER'S 1000ML 1,000 ML IV SCH; -LISINOPRIL HCTZ PO; +LSN/10125 PO; -METF-384 PO; -MULT-506 PO; +PANT40TA PO; +PRAV40TA2 PO; +SILD100T PO; -SILDENAFIL CITRATE PO; +TAMS0.4C38 PO
[2017-06-27] MEDS ORDERED: PROPOFOL IV EMULSION 10 MG/ML 20 ML VIAL IV ONE (09:41)
[2017-06-27] MEDS ORDERED: NEOSTIGMINE METHYLSULFATE 5 MG/5 ML SYR ONE (09:41)
[2017-06-27] MEDS ORDERED: ROCURONIUM BROMIDE 10 MG/ML 5 ML VIAL ONE (09:41)
[2017-06-27] MEDS ORDERED: GLYCOPYRROLATE INJ 0.2 MG/ML VIAL ONE ×2 (09:41→11:39)
[2017-06-27] MEDS ORDERED: FENTANYL CITRATE INJ 50 MCG/1 ML 2 ML VIAL ONE (09:41)
[2017-06-27] MEDS ORDERED: LIDOCAINE HCL 2% 2 ML VIAL (20MG/ML) ONE (09:41)
[2017-06-27] MEDS ORDERED: BUPIVACAINE/EPINEPHRINE 0.5% MPF 1:200,000 10 ML VIAL ONE (09:44)
--- NOTE | 2017-06-27 09:46 | History & Physical Bridge Note ---
H&P Re-Evaluation Bridge Note: I have examined the patient, reviewed the History & Physical and in the interval since the performance of the History & Physical I have noted the following changes of clinical significance: No changes noted
[2017-06-27] MEDS: LACTATED RINGER'S 1000ML IV SCH ×2 (09:47→14:37)
[2017-06-27] MEDS ORDERED: ONDANSETRON INJ 2 MG/ML 2 ML VIAL ONE (10:43)
[2017-06-27] MEDS ORDERED: HYDROmorphone INJ 2 MG/ML SYR/VIAL ONE ×2 (10:48→12:59)
[2017-06-27] MEDS ORDERED: SODIUM CHLORIDE 0.9% INJ 10 ML VIAL ONE (10:48)
[2017-06-27] MEDS ORDERED: ONDANSETRON INJ 2 MG/ML 2 ML VIAL IV PRN ×2 (11:00→12:15)
[2017-06-27] MEDS ORDERED: PROMETHAZINE HCL INJ 6.25 MG in SODIUM CHLORIDE 0.9% 50ML 50 ML IV PRN (11:00)
[2017-06-27] MEDS ORDERED: ATROPINE SULFATE 0.1 MG/ML 5ML SYR IV PRN (11:00)
[2017-06-27] MEDS ORDERED: EpHEDrine SULFATE INJ 50 MG/ML AMP IV PRN (11:00)
[2017-06-27] MEDS ORDERED: TISSEEL FIBRIN SEALANT 4ML TOP ONE (11:37)
[2017-06-27] MEDS ORDERED: HYDROCODONE/ACETAMOPHEN 5/325MG TAB PO PRN (12:15)
[2017-06-27] MEDS ORDERED: MoRPHine SULFATE 4 MG/ML 1 ML CARP\\VIAL IV PRN (12:15)
[2017-06-27] MEDS ORDERED: PROMETHAZINE HCL INJ 25 MG in SODIUM CHLORIDE 0.9% 50ML 50 ML IV PRN (12:15)
[2017-06-27] MEDS: FENTANYL CITRATE INJ 50 MCG/1 ML 2 ML VIAL IV PRN ×4 (12:18→12:37)
--- NOTE | 2017-06-27 12:46 | [facility] Operative Report ---
Operative Report Operative Date Jun 27, 2017. Pre-Operative Diagnosis Gastric Cancer Post-Operative Diagnosis Gastric Cancer; esophageal candidiasis;adhesions. Procedure(s) Performed Laparoscopic Partial Gastrectomy, Intra-operative Esophagogastroduodenoscopy with esophageal brushings. enterolysis. Surgeon Human Resources Consultant Surgeon(s) Yvoani Heart PA-C Estimated Blood Loss 25ML Findings gastric tumor in fundus; apparent esophageal candidiasis; adhesions. Specimens Culture set 1. Throat culture for Eleni. A. Portion of Stomach Drains RUTHANN into LUQ Anesthesia get Complication(s) None Disposition Recovery Room / PACU Description of Procedure After informed consent was obtained the patient was taken the operating suite and placed in supine position. After adequate intubation a Gomez catheter was placed. We started by performing an endoscopy to evaluate the tumor. The gastroscope was inserted in the oropharynx in the proximal esophagus without difficulty. The lumen was viewed at all times. The scope was passed down into the stomach through the pylorus and into the second and third portion of duodenum. It was then withdrawn back in the distal stomach retroflexed upon itself. We could see the tumor without any difficulty. Fortunately it was in the fundus and well away from the GE junction. This appeared to be amenable to resection without performing an anastomosis. Because he already had biopsy- proven cancers we did not do biopsies at this time. We desufflated the stomach and withdrew the scope. The esophagus itself was also markedly raw with a lot of leukoplakia consistent with a candidiasis. We did take some brushings to send the pathology. I then scrubbed into the case after shaving and prepping the abdomen. I began with a supraumbilical incision with an 11 blade scalpel. This was carried down through the soft tissue using electrocautery. The Anterior rectus fascia was opened using electrocautery and 2 #0 Vicryl stay sutures were placed. Peritoneum was entered with blunt finger penetration and a finger sweep was performed. A 12 mm Avendano trocar was placed into the abdomen and the abdomen was insufflated to 18 mmHg. The Laparoscope was inserted in the abdomen and the abdomen was examined in 360. The patient was placed in a reverse Trendelenburg position. We saw no evidence of any metastatic disease. The peritoneal surfaces were clear as was the liver. The distal stomach was attached to the anterior abdominal wall from his prior PEG tube. I was able place a right mid abdominal 5 mm trocar that we would later convert to a 12 mm trocar under direct vision. We also placed a 12 mm trocar in the left midabdomen. We would use a Harmonic scalpel to take down adhesions from the anterior abdominal wall. Because the stomach was essentially to the fascia we did use a KIERRA purple cartridge stapler to divide this and taken down off the anterior abdominal wall. We placed a final subxiphoid 12 mm port under direct vision. We were able to basically palpate with graspers the gastric cancer. I was able to mobilize the greater curvature starting at about midportion of the stomach with the Harmonic scalpel and took down the short gastric vessels heading up towards and around the spleen. The stomach itself was adhered to the pancreas in the region of the tumor which did make this part of the dissection somewhat difficult. We were able to have anesthesia pass a 45 Bengali bougie which we're able to guide into the distal stomach. I was able to use a KIERRA purple cartridge stapler to start transecting at about the midportion of the stomach starting from lateral to medial. We were then able to follow the bougie up to the angle of Hiss. We got as close to the GE junction as we could without stricturing it or necessitating an anastomosis which we are trying to avoid in this older gentleman. Once the stomach completely transected I was unable to use a Harmonic to tease the stomach off the pancreas itself. Any bleeding points were controlled using the Harmonic. Once we had the stomach completely detached we placed it into a large Endo Catch bag and removed from the camera port site. We did thoroughly irrigated the left upper quadrant. There was adequate hemostasis. I did perform a methylene blue dye test which was negative for any staple line leakage. We did use some Tisseel glue to spray the staple lines as well as the splenic bed to help prevent seroma or hematoma formation. We also placed a 10 flat Alex- Aldana drain from one of the port site in the left upper quadrant secured to the skin using 2-0 nylon. A final look around the abdomen showed no other gross abnormalities. All the trochars were removed and the abdomen was desufflated. The fascia the camera port was closed using 0 Vicryl in a [id number] fashion. All wounds were irrigated and closed using 4-0 Monocryl. Marcaine was injected around for postoperative analgesia and skin glue used as a dressing. Patient was awaken extubated and transferred recovery in stable condition I attest to the content of the Intraoperative Record and any orders documented therein. Any exceptions are noted below.
[2017-06-27] MEDS ORDERED: NURSING VERBAL MED ORDER ONE ×2 (13:00→19:45)
[2017-06-27] MEDS ORDERED: HYDROmorphone INJ 0.5 MG/0.5 ML SYR IV PRN (13:30)
--- NOTE | 2017-06-27 13:45 | Anesthesiology Progress Note ---
Anesthesia Post Op Note Date & Time Jun 27, 2017 at 13:45 Vital Signs Pain Intensity: 3 Vital Signs Past 12 Hours Date Time Temp Pulse Resp B/P (MAP) Pulse Ox O2 Delivery O2 Flow Rate FiO2 06/27/17 13:35 106 18 108/89 94 Room Air 4 06/27/17 13:25 106 18 129/71 93 Room Air 4 06/27/17 13:15 36.2 102 18 120/79 93 Room Air 4 06/27/17 13:05 102 18 131/77 93 Room Air 4 06/27/17 12:55 103 18 128/77 98 Room Air 4 06/27/17 12:45 101 18 134/70 96 Room Air 4 06/27/17 12:35 101 18 144/74 95 Room Air 4 06/27/17 12:25 97 18 154/81 100 Mask 10 06/27/17 12:15 99 18 155/99 100 Mask 10 06/27/17 12:05 36.8 95 14 163/83 100 Mask 10 06/27/17 09:22 36.5 87 18 164/82 97 Notes Mental Status: alert / awake / arousable, participated in evaluation Pt Amnestic to Procedure: Yes Nausea / Vomiting: adequately controlled Pain: adequately controlled Airway Patency, RR, SpO2: stable & adequate BP & HR: stable & adequate Hydration State: stable & adequate Anesthetic Complications: no major complications apparent
[2017-06-27] MEDS: LACTATED RINGER'S 1000ML 1,000 ML IV SCH ×2 (14:38→20:15)
[2017-06-27] MEDS: MoRPHine SULFATE 2 MG/ML CARP IV PRN ×2 (15:04→20:19)
[2017-06-27] MEDS: FLUCONAZOLE / NSS 100 MG in PREMIXED NSS 50 ML IV SCH (16:27)
[2017-06-27] MEDS: SUCRALFATE 1 GM/10 ML UDC PO SCH ×2 (17:45→20:21)
[2017-06-27] MEDS: CEFAZOLIN IV 1,000 MG in DEXTROSE 5% 50ML 50 ML IV SCH (17:47)
[2017-06-27] MEDS: DOXEPIN HCL 10 MG CAP PO SCH (20:21)
[2017-06-27] MEDS: HYDROCODONE/ACETAMOPHEN 5/325MG TAB PO PRN (23:54)
[2017-06-28] MEDS: CEFAZOLIN IV 1,000 MG in DEXTROSE 5% 50ML 50 ML IV SCH ×2 (02:12→10:51)
[2017-06-28] MEDS: MoRPHine SULFATE 2 MG/ML CARP IV PRN (02:15)
[2017-06-28 03:26] VITALS: BP 104/57; PULSE 83; TEMP 36.6; O2SAT 93
[2017-06-28] MEDS: LACTATED RINGER'S 1000ML 1,000 ML IV SCH ×2 (04:00→13:38)
[2017-06-28] MEDS: FLUCONAZOLE / NSS 100 MG in PREMIXED NSS 50 ML IV SCH ×2 (04:02→15:37)
[2017-06-28 06:48] LABS: COMPLETE YES; EOS % 0.3 %; HEMATOCRIT 30.7 % (42-52); IG% 0.2 %; LYMPH ABS # 0.22 K/uL (1.2-3.4); MEAN CELL VOLUME 96.2 fL (80-100); MEAN CORPUSCULAR HEMOGLOBIN 30.7 pg (25-34); MEAN CORPUSCULAR HGB CONC 31.9 g/dl (32-36); MEAN PLATELET VOLUME 10.4 fL (7.4-10.4); MONO % 7.4 %; NEUT % 90.1 %; PLATELET COUNT 197 K/uL (130-400); RED BLOOD COUNT 3.19 M/uL (4.7-6.1); WHITE BLOOD COUNT 10.97 K/uL (4.8-10.8)
[2017-06-28 07:15] VITALS: BP 110/63; PULSE 88; TEMP 37.2; O2SAT 93
[2017-06-28 07:24] LABS: BUN/CREATININE RATIO 8.8 (10-20); CALCIUM 8.3 mg/dl (8.5-10.1); CREATININE 1.6 mg/dl (0.60-1.40); POTASSIUM 4.3 mmol/L (3.5-5.1)
[2017-06-28] MEDS: SUCRALFATE 1 GM/10 ML UDC PO SCH ×5 (08:15→21:08)
--- NOTE | 2017-06-28 08:39 | Clinical Documentation Query ---
MICKIE Alicea : CLINICAL DOCUMENTATION QUERY Patient is an 87 year old male who underwent laparoscopic partial gastrectomy, intraoperative EGD, enterolysis. EMR review notes an admission BUN and creatinine of 14 mg/dl and 1.60 mg/dl. Historical EMR review notes an estimated GFR range of 26-43 ml/min from 01/2015 to present. As appropriate, consider clarification as suggested below. Thank you. In your clinical opinion is this patient being managed for: (X ) Chronic kidney disease, stage 3-4 ( ) Other explanation of clinical findings (Please Explain) ( ) Unable to determine (Please Define) ( ) Need to Discuss ( ) Not Agree The medical record reflects the following clinical findings, treatment, and risk factors. Clinical Indicators: As above Treatment: IVF, serial chemistries Risk Factors: Age, hypertension Please clarify and document your clinical opinion in the progress notes and discharge summary. Terms such as "probable", "suspected", "likely", "questionable", "possible", or "still to be ruled out" are acceptable. IF IN AGREEMENT, YOU MUST DOCUMENT ABOVE DIAGNOSTIC STATEMENT IN DAILY PROGRESS NOTES AND DISCHARGE SUMMARY. This document is not part of the patient's record. Thank You, Christopher Berrios, ALLY [phone]
--- NOTE | 2017-06-28 09:03 | Surgery Progress Note ---
Surgery Progress Note Date of Service Jun 28, 2017. Subjective Post OP Day: 1 looks good. no nausea. expected discomfort. tolerating clear liquids. Objective Vital Signs: Date Time Temp Pulse Resp B/P (MAP) Pulse Ox O2 Delivery O2 Flow Rate FiO2 06/28/17 07:50 Room Air 06/28/17 07:15 37.2 88 16 110/63 (79) 93 Room Air 06/28/17 03:26 36.6 83 18 104/57 (73) 93 Room Air 06/27/17 23:38 Room Air 06/27/17 23:08 37.2 100 22 110/63 (79) 93 Room Air 06/27/17 19:31 37.5 114 16 129/73 (91) 96 Nasal Cannula 4.0 06/27/17 17:19 37.3 114 16 132/78 (96) 97 Nasal Cannula 4.0 06/27/17 16:19 37.0 115 16 127/67 (87) 98 Nasal Cannula 4.0 06/27/17 15:25 Nasal Cannula 4.0 06/27/17 15:18 36.8 114 16 147/80 (102) 97 Nasal Cannula 4.0 06/27/17 14:45 36.4 114 16 143/79 (100) 99 Nasal Cannula 4.0 06/27/17 14:15 36.4 107 18 147/84 (105) 97 Nasal Cannula 4.0 06/27/17 14:15 97 Nasal Cannula 4.0 06/27/17 14:15 95 Nasal Cannula 4.0 06/27/17 13:55 36.6 105 18 122/82 94 Room Air 4 06/27/17 13:45 106 18 116/89 94 Room Air 4 06/27/17 13:35 106 18 108/89 94 Room Air 4 06/27/17 13:25 106 18 129/71 93 Room Air 4 06/27/17 13:15 36.2 102 18 120/79 93 Room Air 4 06/27/17 13:05 102 18 131/77 93 Room Air 4 06/27/17 12:55 103 18 128/77 98 Room Air 4 06/27/17 12:45 101 18 134/70 96 Room Air 4 06/27/17 12:35 101 18 144/74 95 Room Air 4 06/27/17 12:25 97 18 154/81 100 Mask 10 06/27/17 12:15 99 18 155/99 100 Mask 10 06/27/17 12:05 36.8 95 14 163/83 100 Mask 10 06/27/17 09:22 36.5 87 18 164/82 97 General Appearance: no apparent distress Abdomen: soft Incision(s): clean, dry, intact Laboratory Results: Results Past 24 Hours Test 06/27/17 09:22 06/27/17 12:10 06/27/17 17:06 06/27/17 20:53 Range/Units Bedside Glucose 173 202 188 166 70-99 mg/dl Test 06/28/17 06:34 Range/Units White Blood Count 10.97 4.8-10.8 K/uL Red Blood Count 3.19 4.7-6.1 M/uL Hemoglobin 9.8 14.0-18.0 g/dL Hematocrit 30.7 42-52 % Mean Corpuscular Volume 96.2 80-100 fL Mean Corpuscular Hemoglobin 30.7 25-34 pg Mean Corpuscular Hemoglobin Concent 31.9 32-36 g/dl Platelet Count 197 130-400 K/uL Mean Platelet Volume 10.4 7.4-10.4 fL Neutrophils (%) (Auto) 90.1 % Lymphocytes (%) (Auto) 2.0 % Monocytes (%) (Auto) 7.4 % Eosinophils (%) (Auto) 0.3 % Basophils (%) (Auto) 0.0 % Neutrophils # (Auto) 9.89 1.4-6.5 K/uL Lymphocytes # (Auto) 0.22 1.2-3.4 K/uL Monocytes # (Auto) 0.81 0.11-0.59 K/uL Eosinophils # (Auto) 0.03 0-0.5 K/uL Basophils # (Auto) 0.00 0-0.2 K/uL RDW Standard Deviation 50.8 36.4-46.3 fL RDW Coefficient of Variation 14.5 11.5-14.5 % Immature Granulocyte % (Auto) 0.2 % Immature Granulocyte # (Auto) 0.02 0.00-0.02 K/uL Sodium Level 141 136-145 mmol/L Potassium Level 4.3 3.5-5.1 mmol/L Chloride Level 107 98-107 mmol/L Carbon Dioxide Level 28 21-32 mmol/L Anion Gap 6.0 3-11 mmol/L Blood Urea Nitrogen 14 7-18 mg/dl Creatinine 1.60 0.60-1.40 mg/dl Est Creatinine Clear Calc Drug Dose 36.7 ml/min Estimated GFR () 44.9 Estimated GFR (Non- 38.7 BUN/Creatinine Ratio 8.8 10-20 Random Glucose 128 70-99 mg/dl Calcium Level 8.3 8.5-10.1 mg/dl Microbiology Results 06/27/17 Fungal Smear - Final, Resulted 06/27/17 Fungal Culture - Preliminary, Resulted NO YEAST OR FUNGUS ISOLATED - REPORT ... Assessment & Plan POD #1 partial gastrectomy doing well silver clears. will try full liquids increase activity
[2017-06-28] MEDS: TAMSULOSIN HCL 0.4 MG CAP PO SCH (09:24)
[2017-06-28] MEDS: LISINOPRIL/HCTZ 10/12.5MG TAB PO SCH (09:24)
[2017-06-28] MEDS: FINGOLIMOD HCL 0.5 MG CAP PO SCH (09:24)
[2017-06-28] MEDS: ENOXAPARIN 40 MG/0.4 ML SYR SQ SCH (09:25)
[2017-06-28] MEDS: HYDROCODONE/ACETAMOPHEN 5/325MG TAB PO PRN ×2 (09:28→14:28)
[2017-06-28] MEDS: PANTOprazole INJ 40 MG in SYRINGE 0 ML IV SCH (10:51)
[2017-06-28 10:59] VITALS: BP 114/64; PULSE 97; TEMP 36.9; O2SAT 92
[2017-06-28 11:33] VITALS: BP 110/65; PULSE 93; O2SAT 95
--- NOTE | 2017-06-28 14:04 | Anesthesiology Progress Note ---
Anesthesia Post Op Note Date & Time Jun 28, 2017 at 13:59 Vital Signs Pain Intensity: 6.0 Vital Signs Past 12 Hours Date Time Temp Pulse Resp B/P (MAP) Pulse Ox O2 Delivery O2 Flow Rate FiO2 06/28/17 11:33 93 95 06/28/17 10:59 36.9 97 18 114/64 (81) 92 Room Air 06/28/17 07:50 Room Air 06/28/17 07:15 37.2 88 16 110/63 (79) 93 Room Air 06/28/17 03:26 36.6 83 18 104/57 (73) 93 Room Air Notes Mental Status: participated in evaluation, see Notes Pt Amnestic to Procedure: Yes Nausea / Vomiting: adequately controlled Pain: adequately controlled Airway Patency, RR, SpO2: stable & adequate BP & HR: stable & adequate Hydration State: stable & adequate Anesthetic Complications: no major complications apparent patient confused and does not answer questions appropriately. Speech clear, movements symmetrical. Family at bedside reported him having a history of "slight dementia" but nothing to this degree of confusion. RN aware. Dr. Mendez made aware.
[2017-06-28] MEDS: DOXEPIN HCL 10 MG CAP PO SCH ×2 (21:00→21:08)
[2017-06-28] MEDS ORDERED: LIDOCAINE HCL 2% JELLY 30 ML TUBE EXT ONE (21:06)
[2017-06-28] MEDS ORDERED: LIDOCAINE HCL 2% JELLY 30 ML TUBE EXT PRN (21:30)
[2017-06-28 23:04] VITALS: O2SAT 75
[2017-06-28 23:05] VITALS: BP 116/66; PULSE 100; TEMP 36.7; O2SAT 91
[2017-06-29] VITALS (10 sets, daily range): BP systolic 105–128; BP diastolic 61–75; PULSE 84–101; TEMP 36.7–37.6; O2SAT 90–97
[2017-06-29] MEDS: FLUCONAZOLE / NSS 100 MG in PREMIXED NSS 50 ML IV SCH ×2 (04:32→17:02)
[2017-06-29] MEDS: MoRPHine SULFATE 2 MG/ML CARP IV PRN (04:35)
[2017-06-29 05:55] LABS: COMPLETE YES; EOS % 0.1 %; IG% 0.3 %; LYMPH % 2.8 %; LYMPH ABS # 0.38 K/uL (1.2-3.4); MEAN CELL VOLUME 97.1 fL (80-100); MEAN CORPUSCULAR HEMOGLOBIN 30.4 pg (25-34); MEAN CORPUSCULAR HGB CONC 31.3 g/dl (32-36); MEAN PLATELET VOLUME 10.8 fL (7.4-10.4); MONO % 6.9 %; NEUT % 89.9 %; PLATELET COUNT 207 K/uL (130-400); RED BLOOD COUNT 3.09 M/uL (4.7-6.1); WHITE BLOOD COUNT 13.34 K/uL (4.8-10.8)
[2017-06-29 06:24] LABS: BUN/CREATININE RATIO 8.2 (10-20); CALCIUM 7.9 mg/dl (8.5-10.1); CREATININE 1.7 mg/dl (0.60-1.40); POTASSIUM 3.7 mmol/L (3.5-5.1)
[2017-06-29] MEDS: SUCRALFATE 1 GM/10 ML UDC PO SCH ×4 (08:13→22:08)
[2017-06-29] MEDS: TAMSULOSIN HCL 0.4 MG CAP PO SCH (09:44)
[2017-06-29] MEDS: FINGOLIMOD HCL 0.5 MG CAP PO SCH (09:44)
[2017-06-29] MEDS: LISINOPRIL/HCTZ 10/12.5MG TAB PO SCH (09:45)
[2017-06-29] MEDS: ENOXAPARIN 40 MG/0.4 ML SYR SQ SCH (09:45)
[2017-06-29] MEDS: LACTATED RINGER'S 1000ML 1,000 ML IV SCH (09:48)
[2017-06-29] MEDS: PANTOprazole INJ 40 MG in SYRINGE 0 ML IV SCH (10:57)
[2017-06-29 13:58] LABS: URINE APPEARANCE CLEAR (CLEAR); URINE BILIRUBIN NEG (NEG); URINE COLOR YELLOW; URINE EPITHELIAL CELL AUTO 20-30 /lpf (0-5); URINE NITRITE NEG (NEG); URINE SPECIFIC GRAVITY 1.017 (1.000-1.030); UROBILINOGEN NEG (NEG); ZZURINE CULT IF INDIC CATH YES
[2017-06-29 14:02] LABS: MANUAL MICROSCOPIC REQUIRED? NO; REVIEW REQ? YES
[2017-06-29 14:11] LABS: URINE MUCUS PRESENT (NONE PRSENT); URINE PATH CASTS 5-10 GRANULAR CASTS /lpf (0)
--- NOTE | 2017-06-29 14:19 | DIAGNOSTIC IMAGING REPORT ---
CHEST ONE VIEW PORTABLE CLINICAL HISTORY: leukocytosis COMPARISON STUDY: 02/07/2015 FINDINGS: The heart is mildly enlarged. There is mild superior mediastinal widening, likely secondary to aortic ectasia. There is mild central pulmonary vascular congestion. There are bibasilar opacities, likely atelectatic. There is an old right fourth rib deformity..[ IMPRESSION: 1. Mild cardiomegaly with mild central vascular prominence 2. Old right fourth rib deformity 3. Bibasilar opacities likely atelectatic Electronically signed by: Deepak Skelton M.D. 06/29/2017 2:18 PM Dictated Date/Time: 06/29/2017 2:16 PM
--- NOTE | 2017-06-29 15:03 | Surgery Progress Note ---
Surgery Progress Note Date of Service Jun 29, 2017. Subjective Post OP Day: 2 clinically he looks ok however he is very confused. appears reasonably comfortable. Objective Vital Signs: Date Time Temp Pulse Resp B/P (MAP) Pulse Ox O2 Delivery O2 Flow Rate FiO2 06/29/17 12:12 37.4 97 18 110/66 (81) 91 Room Air 06/29/17 07:45 Room Air 06/29/17 07:42 36.7 99 18 126/71 (89) 94 Room Air 06/29/17 06:27 101 18 128/75 (92) 91 Room Air 06/29/17 03:16 95 Room Air 06/29/17 02:11 93 Room Air 06/29/17 01:24 97 Room Air 06/28/17 23:05 36.7 100 18 116/66 (83) 91 Nasal Cannula 3.0 06/28/17 23:04 75 Room Air 06/28/17 19:55 Room Air 06/28/17 15:30 Room Air General Appearance: no apparent distress Respiratory/Chest: no respiratory distress, no accessory muscle use Abdomen: non distended, soft Incision(s): clean, dry, intact Laboratory Results: Results Past 24 Hours Test 06/28/17 17:04 06/28/17 19:05 06/28/17 21:03 06/29/17 05:21 Range/Units Bedside Glucose 84 103 108 70-99 mg/dl White Blood Count 13.34 4.8-10.8 K/uL Red Blood Count 3.09 4.7-6.1 M/uL Hemoglobin 9.4 14.0-18.0 g/dL Hematocrit 30.0 42-52 % Mean Corpuscular Volume 97.1 80-100 fL Mean Corpuscular Hemoglobin 30.4 25-34 pg Mean Corpuscular Hemoglobin Concent 31.3 32-36 g/dl Platelet Count 207 130-400 K/uL Mean Platelet Volume 10.8 7.4-10.4 fL Neutrophils (%) (Auto) 89.9 % Lymphocytes (%) (Auto) 2.8 % Monocytes (%) (Auto) 6.9 % Eosinophils (%) (Auto) 0.1 % Basophils (%) (Auto) 0.0 % Neutrophils # (Auto) 11.99 1.4-6.5 K/uL Lymphocytes # (Auto) 0.38 1.2-3.4 K/uL Monocytes # (Auto) 0.92 0.11-0.59 K/uL Eosinophils # (Auto) 0.01 0-0.5 K/uL Basophils # (Auto) 0.00 0-0.2 K/uL RDW Standard Deviation 51.7 36.4-46.3 fL RDW Coefficient of Variation 14.6 11.5-14.5 % Immature Granulocyte % (Auto) 0.3 % Immature Granulocyte # (Auto) 0.04 0.00-0.02 K/uL Sodium Level 138 136-145 mmol/L Potassium Level 3.7 3.5-5.1 mmol/L Chloride Level 104 98-107 mmol/L Carbon Dioxide Level 28 21-32 mmol/L Anion Gap 6.0 3-11 mmol/L Blood Urea Nitrogen 14 7-18 mg/dl Creatinine 1.70 0.60-1.40 mg/dl Est Creatinine Clear Calc Drug Dose 34.5 ml/min Estimated GFR () 41.7 Estimated GFR (Non- 36.0 BUN/Creatinine Ratio 8.2 10-20 Random Glucose 85 70-99 mg/dl Calcium Level 7.9 8.5-10.1 mg/dl Test 06/29/17 08:11 06/29/17 12:34 06/29/17 13:40 Range/Units Bedside Glucose 95 106 70-99 mg/dl Urine Color YELLOW Urine Appearance CLEAR CLEAR Urine pH 5.0 4.5-7.5 Urine Specific [place] 1.017 1.000-1.030 Urine Protein 1+ NEG Urine Glucose (UA) NEG NEG Urine Ketones NEG NEG Urine Occult Blood 1+ NEG Urine Nitrite NEG NEG Urine Bilirubin NEG NEG Urine Urobilinogen NEG NEG Urine Leukocyte Esterase TRACE NEG Urine WBC (Auto) 1-5 0-5 /hpf Urine RBC (Auto) 5-10 0-4 /hpf Urine Hyaline Casts (Auto) 5-10 0-5 /lpf Urine Epithelial Cells (Auto) 20-30 0-5 /lpf Urine Bacteria (Auto) NEG NEG Urine Pathogenic Casts 5-10 GRANULAR CASTS 0 /lpf Urine Mucus PRESENT NONE PRSENT Urine Yeast (Auto) NONE PRSENT Microbiology Results 06/29/17 Urine Culture, Received Pending Assessment & Plan 06/29/17 doing ok. leukocytosis. will check UA and cxr sundowning/worsening baseline dementia. will hold all narcotics/anti-emetics. use IV tylenol for pain. can advance to full liquids increase activity 06/28/17 POD #1 partial gastrectomy doing well silver clears. will try full liquids increase activity POD #1 partial gastrectomy doing well silver clears. will try full liquids increase activity
[2017-06-29] MEDS: DOXEPIN HCL 10 MG CAP PO SCH (22:08)
[2017-06-30] MEDS: FLUCONAZOLE / NSS 100 MG in PREMIXED NSS 50 ML IV SCH (04:26)
[2017-06-30] MEDS: LACTATED RINGER'S 1000ML 1,000 ML IV SCH (05:48)
[2017-06-30 06:49] LABS: EOS % 0.3 %; HEMATOCRIT 27.5 % (42-52); IG% 0.3 %; LYMPH ABS # 0.37 K/uL (1.2-3.4); MEAN CELL VOLUME 95.8 fL (80-100); MEAN CORPUSCULAR HGB CONC 32.4 g/dl (32-36); MONO % 7.5 %; NEUT % 88.9 %; PLATELET COUNT 221 K/uL (130-400); RED BLOOD COUNT 2.87 M/uL (4.7-6.1); WHITE BLOOD COUNT 12.25 K/uL (4.8-10.8)
[2017-06-30 07:15] LABS: BUN/CREATININE RATIO 10.1 (10-20); CALCIUM 7.9 mg/dl (8.5-10.1); CREATININE 1.5 mg/dl (0.60-1.40); POTASSIUM 3.5 mmol/L (3.5-5.1)
[2017-06-30 07:19] LABS: ALB/GLOB RATIO 0.7 (0.9-2)
[2017-06-30 07:31] LABS: COMPLETE YES
[2017-06-30 07:53] VITALS: BP 130/76; PULSE 82; TEMP 37.2; O2SAT 96
[2017-06-30] MEDS: SUCRALFATE 1 GM/10 ML UDC PO SCH ×4 (08:44→20:25)
[2017-06-30] MEDS: TAMSULOSIN HCL 0.4 MG CAP PO SCH (09:15)
[2017-06-30] MEDS: LISINOPRIL/HCTZ 10/12.5MG TAB PO SCH (09:15)
[2017-06-30] MEDS: ENOXAPARIN 40 MG/0.4 ML SYR SQ SCH (09:15)
[2017-06-30] MEDS: FINGOLIMOD HCL 0.5 MG CAP PO SCH (09:15)
--- NOTE | 2017-06-30 09:43 | Surgery Progress Note ---
Surgery Progress Note Date of Service Jun 30, 2017. Subjective Post OP Day: 3 much more oriented today. looks/feels well. silver liquids. denies pain. Objective Vital Signs: Date Time Temp Pulse Resp B/P (MAP) Pulse Ox O2 Delivery O2 Flow Rate FiO2 06/30/17 07:53 37.2 82 16 130/76 (94) 96 Room Air 06/30/17 00:15 Room Air 06/29/17 23:05 37.6 84 16 117/65 (82) 94 Room Air 06/29/17 19:16 37.4 93 16 105/61 (76) 90 Room Air 0.0 06/29/17 16:30 92 Room Air 06/29/17 15:13 37.4 94 17 121/68 (85) 92 Room Air 06/29/17 12:12 37.4 97 18 110/66 (81) 91 Room Air General Appearance: no apparent distress Respiratory/Chest: no respiratory distress, no accessory muscle use Abdomen: non distended, soft Incision(s): clean, dry, intact Laboratory Results: Results Past 24 Hours Test 06/29/17 12:34 06/29/17 13:40 06/29/17 16:47 06/30/17 06:09 Range/Units Bedside Glucose 106 108 70-99 mg/dl Urine Color YELLOW Urine Appearance CLEAR CLEAR Urine pH 5.0 4.5-7.5 Urine Specific [place] 1.017 1.000-1.030 Urine Protein 1+ NEG Urine Glucose (UA) NEG NEG Urine Ketones NEG NEG Urine Occult Blood 1+ NEG Urine Nitrite NEG NEG Urine Bilirubin NEG NEG Urine Urobilinogen NEG NEG Urine Leukocyte Esterase TRACE NEG Urine WBC (Auto) 1-5 0-5 /hpf Urine RBC (Auto) 5-10 0-4 /hpf Urine Hyaline Casts (Auto) 5-10 0-5 /lpf Urine Epithelial Cells (Auto) 20-30 0-5 /lpf Urine Bacteria (Auto) NEG NEG Urine Pathogenic Casts 5-10 GRANULAR CASTS 0 /lpf Urine Mucus PRESENT NONE PRSENT Urine Yeast (Auto) NONE PRSENT White Blood Count 12.25 4.8-10.8 K/uL Red Blood Count 2.87 4.7-6.1 M/uL Hemoglobin 8.9 14.0-18.0 g/dL Hematocrit 27.5 42-52 % Mean Corpuscular Volume 95.8 80-100 fL Mean Corpuscular Hemoglobin 31.0 25-34 pg Mean Corpuscular Hemoglobin Concent 32.4 32-36 g/dl Platelet Count 221 130-400 K/uL Mean Platelet Volume 11.0 7.4-10.4 fL Neutrophils (%) (Auto) 88.9 % Lymphocytes (%) (Auto) 3.0 % Monocytes (%) (Auto) 7.5 % Eosinophils (%) (Auto) 0.3 % Basophils (%) (Auto) 0.0 % Neutrophils # (Auto) 10.88 1.4-6.5 K/uL Lymphocytes # (Auto) 0.37 1.2-3.4 K/uL Monocytes # (Auto) 0.92 0.11-0.59 K/uL Eosinophils # (Auto) 0.04 0-0.5 K/uL Basophils # (Auto) 0.00 0-0.2 K/uL RDW Standard Deviation 49.8 36.4-46.3 fL RDW Coefficient of Variation 14.1 11.5-14.5 % Immature Granulocyte % (Auto) 0.3 % Immature Granulocyte # (Auto) 0.04 0.00-0.02 K/uL Red Blood Cell Morphology Unremarkable Sodium Level 139 136-145 mmol/L Potassium Level 3.5 3.5-5.1 mmol/L Chloride Level 103 98-107 mmol/L Carbon Dioxide Level 28 21-32 mmol/L Anion Gap 8.0 3-11 mmol/L Blood Urea Nitrogen 15 7-18 mg/dl Creatinine 1.50 0.60-1.40 mg/dl Est Creatinine Clear Calc Drug Dose 39.1 ml/min Estimated GFR () 48.5 Estimated GFR (Non- 41.9 BUN/Creatinine Ratio 10.1 10-20 Random Glucose 156 70-99 mg/dl Calcium Level 7.9 8.5-10.1 mg/dl Total Bilirubin 1.0 0.2-1 mg/dl Aspartate Amino Transf (AST/SGOT) 20 15-37 U/L Alanine Aminotransferase (ALT/SGPT) 11 12-78 U/L Alkaline Phosphatase 85 45-117 U/L Total Protein 5.6 6.4-8.2 gm/dl Albumin 2.3 3.4-5.0 gm/dl Globulin 3.3 2.5-4.0 gm/dl Albumin/Globulin Ratio 0.7 0.9-2 Test 06/30/17 08:01 Range/Units Bedside Glucose 172 70-99 mg/dl Microbiology Results 06/29/17 Urine Culture, Received Pending Assessment & Plan 06/30/17 UA/cxr negative clinically looks good confusion much improved today will advance to soft diet. possible d/c tomorrow. 06/29/17 doing ok. leukocytosis. will check UA and cxr sundowning/worsening baseline dementia. will hold all narcotics/anti-emetics. use IV tylenol for pain. can advance to full liquids increase activity 06/28/17 POD #1 partial gastrectomy doing well silver clears. will try full liquids increase activity 06/29/17 doing ok. leukocytosis. will check UA and cxr sundowning/worsening baseline dementia. will hold all narcotics/anti-emetics. use IV tylenol for pain. can advance to full liquids increase activity 06/28/17 POD #1 partial gastrectomy doing well silver clears. will try full liquids increase activity
[2017-06-30] MEDS: PANTOprazole INJ 40 MG in SYRINGE 0 ML IV SCH (11:34)
[2017-06-30 12:10] VITALS: BP 129/73; PULSE 98; TEMP 37; O2SAT 93
[2017-06-30] MEDS: ACETAMINOPHEN IV 100 ML IV PRN (12:32)
[2017-06-30] MEDS ORDERED: NURSING VERBAL MED ORDER ONE (13:00)
[2017-06-30] MEDS ORDERED: GLUCOSE 40% GEL 15 GM TUBE PO PRN (13:15)
[2017-06-30] MEDS ORDERED: PHARMACY GLYCEMIC MGMT CONSULT PRN (13:15)
[2017-06-30] MEDS ORDERED: GLUCOSE 10 TABS/TUBE PO PRN (13:15)
[2017-06-30] MEDS ORDERED: GLUCAGON FOR INJ 1 MG VIAL SQ PRN (13:15)
[2017-06-30] MEDS ORDERED: DEXTROSE 50% 50 ML SYR IV PRN (13:15)
[2017-06-30] MEDS: INSULIN ASPART 100 UNITS/ML 3 ML PEN SC SCH ×3 (13:41→21:00)
--- NOTE | 2017-06-30 13:58 | Pharmacy Progress Note ---
Glycemic Control Intl Consult Date of Service Jun 30, 2017. Scope Glycemic Pharmacist consulted by Dr Cordero on 06/30/17 for glycemic control and to write orders per [facility] inpatient glycemic control protocol Objective Weight (Kilograms): 85.900 Accuchecks BSG (last 24hrs): Test 06/29/17 16:47 06/30/17 06:09 06/30/17 08:01 06/30/17 11:49 Bedside Glucose 108 mg/dl (70-99) 172 mg/dl (70-99) 237 mg/dl (70-99) Random Glucose 156 mg/dl (70-99) Laboratory Data (last 24hrs) HbA1c 8.6% on 02/19/17 Recent Pertinent Medications Outpatient Anti-diabetic Regimen: * Amaryl 2mg PO AM Risk Factors for Insulin Resistance: * Recent Surgery * Diet * Baseline insulin resistance/antidiabetic regimen on hold Assessment & Plan ASSESSMENT: * 87yo T2DM male with assumed adequate outpatient glycemic control per recent A1c of 8.6%. This is in target range for patient based on age/comorbidities. * A1c is from january 2017, outdated. Will add to labs for updated value if possible. * Pt is maintained on oral antidiabetic agent {Amaryl/glimepiride} as an outpatient * Oral agents are not recommended for inpatient use d/t drug interactions, changing PO intake, and difficulty titrating for acute hyper/hypoglycemia. ADA recommends re-initiating outpatient oral agents 1-2 days prior to discharge if/ when appropriate if they were held on admission. * Will hold oral agents for admission and utilize SQ basal bolus insulin regimen which is the recommended regimen for inpatient glycemic control. * Will initiate weight based insulin dosing for insulin alysha patient and titrate based on BSG trends. * Hold off on basal insulin until diet further advanced. Will initiate basal for persistent hyperglycemia (BSG > 180) * ADA & AACE recommend a goal blood sugar range 140-180 mg/dl for the majority of critically ill & non-critically ill patients. However, more stringent targets may be selected in individual cases. Will utilize more stringent goal of 110-140mg/dl as tighter glycemic control is warranted to facilitate wound/ infection healing. PLAN FOR INPATIENT GLYCEMIC CONTROL: BSGs on the rise today secondary advancing diet and held outpatient antidiabetic agent. SQ insulin regimen is needed. Start weight based and titrate based on BSG trends. * Continue to hold outpatient oral diabetes medications * Basal insulin * Lantus 8 units SQ BID if/when BSG > 180 * Bolus insulin * NovoLog per scale ACHS or Q6hrs while NPO * Goal Range: Low 110 mg/dL - High 110 mg/dL * Correction Factor: 30 mg/dL/unit * Nutritional / Prandial insulin per carb ratio of 1 unit per 10 grams CHO consumed * Please note that the plan above was derived based on current level of insulin resistance and hospital stress. These recommendations are appropriate for inpatient admission only. Plan of care upon discharge will need to be reassessed to avoid potential outpatient hypo/hyperglycemia. Thank you.
[2017-06-30 15:22] VITALS: BP 118/70; PULSE 98; TEMP 37; O2SAT 93
[2017-06-30] MEDS ORDERED: INSULIN GLARGINE SOLOSTAR 100 UNITS/ML 3 ML PEN SC SCH ×2 (17:45→21:00)
[2017-06-30] MEDS: DOXEPIN HCL 10 MG CAP PO SCH (20:25)
[2017-06-30 23:10] VITALS: BP 143/76; PULSE 80; TEMP 37.2; O2SAT 92
[2017-07-01] MEDS: ACETAMINOPHEN IV 100 ML IV PRN (02:33)
[2017-07-01 07:08] VITALS: BP 149/85; PULSE 89; TEMP 37.2; O2SAT 92
[2017-07-01 08:34] LABS: ESTIMATED AVERAGE GLUCOSE 171 mg/dl; HA1C FLAG Normal (Normal)
--- NOTE | 2017-07-01 08:48 | Surgery Progress Note ---
Surgery Progress Note Date of Service Jul 01, 2017. Subjective Post OP Day: 4 + feeling well pt feeling well. per nursing pt was mildly confused overnight. eating ok. + BM Objective Vital Signs: Date Time Temp Pulse Resp B/P (MAP) Pulse Ox O2 Delivery O2 Flow Rate FiO2 07/01/17 07:08 37.2 89 16 149/85 (106) 92 Room Air 06/30/17 23:10 37.2 80 16 143/76 (98) 92 Room Air 06/30/17 20:31 Room Air 06/30/17 15:29 Room Air 06/30/17 15:22 37.0 98 18 118/70 (86) 93 Room Air 06/30/17 12:10 37.0 98 18 129/73 (91) 93 Room Air Physical Exam: RUTHANN drainage (serous) General Appearance: no apparent distress Respiratory/Chest: no respiratory distress, no accessory muscle use Abdomen: non tender, non distended, soft Incision(s): clean, dry, intact, no erythema Laboratory Results: Results Past 24 Hours Test 06/30/17 11:49 06/30/17 16:53 06/30/17 20:49 Range/Units Bedside Glucose 237 87 135 70-99 mg/dl Assessment & Plan 07/01/17 doing well clinically d/c RUTHANN d/c Gomez If pt can urinate will plan d/c after lunch. 06/30/17 UA/cxr negative clinically looks good confusion much improved today will advance to soft diet. possible d/c tomorrow. 06/29/17 doing ok. leukocytosis. will check UA and cxr sundowning/worsening baseline dementia. will hold all narcotics/anti-emetics. use IV tylenol for pain. can advance to full liquids increase activity 06/28/17 POD #1 partial gastrectomy doing well silver clears. will try full liquids increase activity 06/30/17 UA/cxr negative clinically looks good confusion much improved today will advance to soft diet. possible d/c tomorrow. 06/29/17 doing ok. leukocytosis. will check UA and cxr sundowning/worsening baseline dementia. will hold all narcotics/anti-emetics. use IV tylenol for pain. can advance to full liquids increase activity 06/28/17 POD #1 partial gastrectomy doing well silver clears. will try full liquids increase activity
[2017-07-01] MEDS: SUCRALFATE 1 GM/10 ML UDC PO SCH ×2 (08:50→11:20)
[2017-07-01] MEDS: INSULIN ASPART 100 UNITS/ML 3 ML PEN SC SCH ×2 (08:55→12:52)
[2017-07-01] MEDS: LISINOPRIL/HCTZ 10/12.5MG TAB PO SCH (09:40)
[2017-07-01] MEDS: TAMSULOSIN HCL 0.4 MG CAP PO SCH (09:40)
[2017-07-01] MEDS: FINGOLIMOD HCL 0.5 MG CAP PO SCH (09:40)
[2017-07-01] MEDS: ENOXAPARIN 40 MG/0.4 ML SYR SQ SCH (09:41)
[2017-07-01] MEDS ORDERED: HYDR-5688 PO (09:52)
--- NOTE | 2017-07-01 10:19 | Discharge Instructions ---
Discharge Instructions Date of Service Jul 01, 2017. Admission Reason for Admission: Gastric Cancer Discharge Discharge Diagnosis / Problem: partial gastrectomy Discharge Goals Goal(s): Improve disease control Activity Recommendations Activity Limitations: as noted below Lifting Limitations: no more than 10 pounds Shower/Bathe: no limitations . Instructions / Follow-Up Instructions / Follow-Up Dr. Cordero in 7-10 days, call [phone] to schedule or if you have any questions/concerns Current Hospital Diet Patient's current hospital diet: Low Fiber Diet, Diabetes Type 2 Diet Discharge Diet Recommended Diet: Regular Diet Diet Texture: Mechanical Soft (ground) (as discussed) Procedures Procedures Performed: Laparoscopic Partial Gastrectomy, Intra-operative Esophagogastroduodenoscopy with esophageal brushings. enterolysis. Pending Studies Studies pending at discharge: yes List of pending studies: Pathology Laboratory Results Hemoglobin A1c Test 06/30/17 06:09 Range/Units Estimated Average Glucose 171 mg/dl Hemoglobin A1c 7.6 H 4.5-5.6 % Medical Emergencies . Who to Call and When: Medical Emergencies: If at any time you feel your situation is an emergency, please call 911 immediately. . Non-Emergent Contact Non-Emergency issues call your: Surgeon Call Non-Emergent contact if: you have a fever, temperature is above 101.5, your pain is not controlled, wound has increased redness, wound has increased pain . "Provider Documentation" section prepared by [facility]. . VTE Core Measure Inpt VTE Proph given/why not?: Enoxaparin (Lovenox)SQ
[2017-07-01] MEDS ORDERED: LANTUS PER UNIT CHARGE SQ ONE (10:30)
[2017-07-01] MEDS: PANTOprazole INJ 40 MG in SYRINGE 0 ML IV SCH (11:20)
[2017-07-01 11:47] VITALS: BP 149/85; PULSE 89; TEMP 37.2; O2SAT 92
--- NOTE | 2017-07-02 16:19 | DISCHARGE SUMMARY ---
PRIMARY DISCHARGE DIAGNOSES: 1. Gastric cancer. 2. Esophageal candidiasis. 3. Chronic anemia. SECONDARY DISCHARGE DIAGNOSES: 1. Gastric cancer. 2. Dementia. 3. Multiple sclerosis. 4. Hypertension. 5. Type 2 diabetes. 6. Neuropathy. 7. Chronic kidney disease. PROCEDURE PERFORMED: Laparoscopic partial gastrectomy with intraoperative esophagogastroduodenoscopy with esophageal brushings. HOSPITAL COURSE: The patient is an 87-year-old male recently admitted for anemia and upper GI bleed and found to have a gastric cancer. His bleeding had subsided. He was now admitted through same day and taken to the operating room for laparoscopic partial gastrectomy. The procedure was well tolerated. He was transferred to the surgical floor. He was kept on sliding scale insulin to cover his blood sugars and his routine antihypertensives. He was doing well on postoperative day 1 was tolerating clear liquids. He did have some confusion on postoperative day 2 a little more than his baseline dementia, but by day 3 was back to baseline. He was able to tolerate a soft diet. He was increasing activity. His regular insulin schedule was resumed. By day 4 he was moving his bowels. He was able to tolerate regular diet. He had no difficulties voiding once catheter was removed. He was stable for discharge home. DISCHARGE INSTRUCTIONS: Discharge home. Follow up with Dr. Cordero in approximately 1 week. Continue soft low fiber diet. DISCHARGE MEDICATIONS: [place] 1 tablet every 4 hours as needed. Resume home medications Vitamin D 1000 units daily, duloxetine 10 mg p.o. at bedtime, Gilen[place] 0.5 mg daily, lisinopril 10/12.5 mg daily, Protonix 40 mg b.i.d., pravastatin 40 mg daily, Flomax 0.4 mg daily, sildenafil 100 mg p.r.n., glimepiride 4 mg tablets daily.
== END 2017-07-01 13:00 | disposition home health service (06) | DRG 336 ==
LOC: C.ACU 08:50 → C.MSW 09:56 → ENRESERV 12:40
PROVIDERS: ADMIT Surgery; ATTEND Surgery
PROC: 0DB64ZZ Excision of Stomach, Percutaneous Endoscopic Approach (ICD-10-PCS; principal; 2017-06-27 11:00)
PROC: 0DNW4ZZ Release Peritoneum, Percutaneous Endoscopic Approach (ICD-10-PCS; principal; 2017-06-27 11:00)
DX: C16.9 Malignant neoplasm of stomach, unspecified (principal); B37.81 Candidal esophagitis; D64.9 Anemia, unspecified; I10 Essential (primary) hypertension; K21.0 Gastro-esophageal reflux disease with esophagitis; E78.01 Familial hypercholesterolemia; G35 Multiple sclerosis; E55.9 Vitamin D deficiency, unspecified; E11.40 Type 2 diabetes mellitus with diabetic neuropathy, unspecified; D72.829 Elevated white blood cell count, unspecified; Z79.899 Other long term (current) drug therapy; Z88.8 Allergy status to other drugs, medicaments and biological substances; Z88.2 Allergy status to sulfonamides; Z87.891 Personal history of nicotine dependence; Z80.9 Family history of malignant neoplasm, unspecified; Z82.61 Family history of arthritis; Z82.5 Family history of asthma and other chronic lower respiratory diseases; Z80.3 Family history of malignant neoplasm of breast; K66.0 Peritoneal adhesions (postprocedural) (postinfection)

== ENCOUNTER 2017-07-12 03:43 | Emergency (ER) | payer BC, OTHER ==
[~2017-07-12] VITALS: Ht 175.3 cm; Wt 83.6 kg
[~2017-07-12 03:43] MED LIST changes: -CEFAZOLIN 2000 MG/60 ML D5W 60 ML IV SCH; -HEPARIN SOD 5000 UNIT/0.5 ML CARP SQ SCH; +HYDR-5688 PO; -LACTATED RINGER'S 1000ML 1,000 ML IV SCH
[2017-07-12 03:46] VITALS: TEMP 36.9; Ht 175.3 cm; Wt 83.6 kg
[2017-07-12 04:22] LABS: URINE APPEARANCE CLEAR (CLEAR); URINE BILIRUBIN NEG (NEG); URINE COLOR YELLOW; URINE NITRITE NEG (NEG); URINE SPECIFIC GRAVITY 1.015 (1.000-1.030); UROBILINOGEN NEG (NEG)
[2017-07-12 04:23] LABS: MANUAL MICROSCOPIC REQUIRED? NO; REVIEW REQ? NO
--- NOTE | 2017-07-12 04:23 | EMERGENCY ROOM VISIT NOTE ---
History Report prepared by Petty: Yaw Wright Under the Supervision of: Dr. Franny Sanderson D.O. First contact with patient: 03:47 Chief Complaint: HYPOGLYCEMIA Stated Complaint: HYPOGLYCEMIA History of Present Illness The patient is an 87 year old male who presents to the Emergency Room with complaints of resolved hypoglycemia that occurred prior to arrival. EMS states that patient was found unresponsive with a glucose of 40. They report that he was given D10 and his glucose ashleigh to 174. The patient's states that around 3 hours ago, she found the patient, in bed, moaning and kicking his right leg. She reports that she thought he was having a nightmare or had to use the restroom, so she tried to wake him up. The notes that the patient was unresponsive. She states that she waited about 30 minutes because he is typically able to go to the restroom by himself. The reports that she then called the ambulance because he urinated himself, and he was still unresponsive. She notes that he ate breakfast, lunch, and dinner. The states that he ate dinner around 11.5 hours ago and had eggs, toast with sugar- free jam, and ice cream. She reports that she asked him if he wanted a snack, and he said no. The notes that the patient does not take insulin; he takes glyburide twice a day. She states that he took his correct dosage and did not miss one. The reports that he has not had low glucose before. 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 The states the patient has had a decreased appetite and a dry mouth. She denies urinary symptoms and abdominal pain. Source of History: spouse/significant other, EMS Onset: prior to arrival Position: other (global) Quality: other (hypoglycemia) Timing: resolved Associated Symptoms: + LOC, No abdominal pain, No urinary symptoms Note: Associated symptoms: decreased appetite and a dry mouth Review of Systems See HPI for pertinent positives & negatives. A total of 10 systems reviewed and were otherwise negative. Past Medical & Surgical Medical Problems: (1) Diabetes (2) Gastric malignant neoplasm (3) Hematemesis (4) Hypertension (5) Multiple sclerosis Family History Cancer Diabetes mellitus Hypertension Social History Smoking Status: Former Smoker Marital Status: Housing Status: lives with significant other Occupation Status: retired Current/Historical Medications Scheduled Cholecalciferol (Vitamin D 1000 Unit), 1,000 INTER.UNIT PO QAM Doxepin (Sinequan), 10 MG PO HS Fingolimod Hcl (Gilenya), 1 CAP PO QAM Glimepiride (Glimepiride), 1 TAB PO QAM Hctz/Lisinopril (Lisinopril/Hctz 10/12.5 Mg), 1 TAB PO QAM Pantoprazole (Protonix), 40 MG PO BID Pravastatin Sodium (Pravastatin Sodium), 40 MG PO QPM Sildenafil Citrate (Viagra), 100 MG PO prn Tamsulosin Hcl (Flomax), 0.4 MG PO QAM Scheduled PRN Hydrocodone/Acetaminophen 5MG/325MG (Garvin 5MG/325MG), 1 TABLET PO Q4H PRN for Pain Ketoconazole (Topical) (Xolegel), 1 APPLN TOP DAILY PRN for Allergies Coded Allergies: Sulfa Antibiotics (Verified Allergy, Unknown, unknown, 07/12/17) Physical Exam Vital Signs Date Time Temp Pulse Resp B/P (MAP) Pulse Ox O2 Delivery O2 Flow Rate FiO2 07/12/17 05:55 95 16 137/85 96 07/12/17 05:20 78 20 110/65 95 Room Air 07/12/17 03:49 95 07/12/17 03:46 36.9 94 20 132/78 97 Room Air Physical Exam HEENT: Head - normocephalic and atraumatic Pupils are equal, round, and reactive to light. Extraocular eye muscles are intact, and sclera are anicteric. Nose - moist nasal mucosa without discharge. Mouth - moist buccal mucosa. Poor dentition. Oropharynx is nonerythematous and there is no tonsillar exudate or edema noted. Neck: Supple; no JVD, nuchal rigidity, cervical lymphadenopathy. Heart: Regular rate and rhythm. There is a normal S1 and S2 with no murmurs, clicks, or gallops appreciated. Lungs: Clear to auscultation bilaterally with no wheezes, rales, or rhonchi. Abdomen: Soft, completely nontender, nondistended, with good bowel sounds. There are no palpable pulsatile masses or hepatosplenomegaly. There is no guarding, rigidity, or rebound noted. Extremities: No evidence of cyanosis, clubbing, or edema. There are easily palpable peripheral pulses. Skin: Pale, warm, and dry with good turgor and no rashes. Medical Decision & Procedures Laboratory Results 07/12/17 04:07 Red Blood Count 2.97, Mean Corpuscular Volume 94.3, Mean Corpuscular Hemoglobin 30.3, Mean Corpuscular Hemoglobin Concent 32.1, Mean Platelet Volume 9.9, Neutrophils (%) (Auto) 88.4, Lymphocytes (%) (Auto) 5.1, Monocytes (%) (Auto) 4.5, Eosinophils (%) (Auto) 1.1, Basophils (%) (Auto) 0.1, Neutrophils # (Auto) 10.47, Lymphocytes # (Auto) 0.60, Monocytes # (Auto) 0.53, Eosinophils # (Auto) 0.13, Basophils # (Auto) 0.01 07/12/17 04:07 Test 07/12/17 04:07 07/12/17 04:11 07/12/17 05:19 White Blood Count 11.83 K/uL (4.8-10.8) Red Blood Count 2.97 M/uL (4.7-6.1) Hemoglobin 9.0 g/dL (14.0-18.0) Hematocrit 28.0 % (42-52) Mean Corpuscular Volume 94.3 fL (80-100) Mean Corpuscular Hemoglobin 30.3 pg (25-34) Mean Corpuscular Hemoglobin Concent 32.1 g/dl (32-36) Platelet Count 546 K/uL (130-400) Mean Platelet Volume 9.9 fL (7.4-10.4) Neutrophils (%) (Auto) 88.4 % Lymphocytes (%) (Auto) 5.1 % Monocytes (%) (Auto) 4.5 % Eosinophils (%) (Auto) 1.1 % Basophils (%) (Auto) 0.1 % Neutrophils # (Auto) 10.47 K/uL (1.4-6.5) Lymphocytes # (Auto) 0.60 K/uL (1.2-3.4) Monocytes # (Auto) 0.53 K/uL (0.11-0.59) Eosinophils # (Auto) 0.13 K/uL (0-0.5) Basophils # (Auto) 0.01 K/uL (0-0.2) RDW Standard Deviation 50.8 fL (36.4-46.3) RDW Coefficient of Variation 14.6 % (11.5-14.5) Immature Granulocyte % (Auto) 0.8 % Immature Granulocyte # (Auto) 0.09 K/uL (0.00-0.02) Anion Gap 6.0 mmol/L (3-11) Est Creatinine Clear Calc Drug Dose 31.8 ml/min Estimated GFR () 41.7 Estimated GFR (Non- 36.0 BUN/Creatinine Ratio 12.3 (10-20) Calcium Level 8.7 mg/dl (8.5-10.1) Total Bilirubin 0.4 mg/dl (0.2-1) Aspartate Amino Transf (AST/SGOT) 48 U/L (15-37) Alanine Aminotransferase (ALT/SGPT) 42 U/L (12-78) Alkaline Phosphatase 185 U/L (45-117) Troponin I < 0.015 ng/ml (0-0.045) Total Protein 6.7 gm/dl (6.4-8.2) Albumin 2.6 gm/dl (3.4-5.0) Globulin 4.1 gm/dl (2.5-4.0) Albumin/Globulin Ratio 0.6 (0.9-2) Thyroid Stimulating Hormone (TSH) 0.449 uIu/ml (0.300-4.500) Urine Color YELLOW Urine Appearance CLEAR (CLEAR) Urine pH 5.0 (4.5-7.5) Urine Specific [place] 1.015 (1.000-1.030) Urine Protein NEG (NEG) Urine Glucose (UA) NEG (NEG) Urine Ketones NEG (NEG) Urine Occult Blood NEG (NEG) Urine Nitrite NEG (NEG) Urine Bilirubin NEG (NEG) Urine Urobilinogen NEG (NEG) Urine Leukocyte Esterase NEG (NEG) Bedside Glucose 123 mg/dl (70-99) Laboratory results per my review. Medications Administered Medications (Trade) Dose Ordered Sig/Terrance Route Start Time Stop Time Status Last Admin Dose Admin Sodium Chloride 500 ml @ 999 mls/hr Q31M STAT IV 07/12/17 04:47 07/12/17 05:17 DC 07/12/17 05:08 999 MLS/HR Procedure 0447: Ordered Sodium Chloride 500 ml @ 999 mls/hr IV. ECG Indication: other (hypoglycemia) Rate (beats per minute): 92 Rhythm: normal sinus Findings: no acute ischemic change, no ectopy ED Course 0352: The patient was evaluated in room A02. A complete history and physical examination were performed. Nursing notes and previous electronic medical records were reviewed. IV lock was established and labs were drawn as above. A twelve-lead EKG was obtained as described above. 0447: Ordered Sodium Chloride 500 ml @ 999 mls/hr IV. 0501: I reevaluated the patient. He is doing great. He is able to eat and drink. I discussed his current exam findings and lab results. 0543: Upon reevaluation, the patient is up to the bathroom, eating, and drinking. His last glucose was 123. I discussed findings and results with the patient. He verbalized agreement of the treatment plan. The patient was discharged home. Medical Decision The patient is an 87 year old male who presents to the ED with hypoglycemia. Differential diagnosis includes accidental overdose, metabolic abnormality, dehydration, hypoglycemia. Lab results show: WBC of 11.8, hemoglobin of 9.0 which is baseline since surgery , platelet count of 546 which is dramatically elevated since surgery, BUN of 21 and creatinine of 1.7 both elevated since surgery, glucose of 118, normal TSH, albumin of 2.6, AST is slightly elevated at 48, alkaline phosphatase of 185. I've instructed the to check the patient's blood sugar prior to administering the glyburide. If the blood sugar reading is less than 140, she should hold that dose. I've asked her to also keep a log of these readings. They should follow-up next week with a primary care physician for reevaluation and to recheck renal function tests and electrolytes. I encouraged the patient to take plenty of clear liquids to avoid dehydration and to take a well-balanced diet. Medication Reconcilliation Current Medication List: was personally reviewed by me Blood Pressure Screening Patient's blood pressure: Normal blood pressure Blood pressure disposition: Did not require urgent referral Impression Primary Impression: Diabetic hypoglycemia Additional Impression: Dehydration Scribe Attestation The scribe's documentation has been prepared under my direction and personally reviewed by me in its entirety. I confirm that the note above accurately reflects all work, treatment, procedures, and medical decision making performed by me. Departure Information Dispostion Home / Self-Care Referrals Miguelito King M.D. (PCP) Forms HOME CARE DOCUMENTATION FORM, IMPORTANT VISIT INFORMATION, WORK / SCHOOL INSTRUCTIONS Patient Instructions Dehydration, Hypoglycemia, My [facility] Additional Instructions Rest. Keep yourself well-hydrated. Take the blood sugar before giving the glyburide. If the blood sugar is less than 140, do not give the med. Follow up next week with your doctor for a recheck of your kidney functions and electrolytes Problem Qualifiers
[2017-07-12 04:27] LABS: BASO % 0.1 %; BASO ABS # 0.01 K/uL (0-0.2); COMPLETE YES; EOS % 1.1 %; IG% 0.8 %; LYMPH % 5.1 %; MEAN CELL VOLUME 94.3 fL (80-100); MEAN CORPUSCULAR HEMOGLOBIN 30.3 pg (25-34); MEAN CORPUSCULAR HGB CONC 32.1 g/dl (32-36); MEAN PLATELET VOLUME 9.9 fL (7.4-10.4); MONO % 4.5 %; NEUT % 88.4 %; PLATELET COUNT 546 K/uL (130-400); RED BLOOD COUNT 2.97 M/uL (4.7-6.1); WHITE BLOOD COUNT 11.83 K/uL (4.8-10.8)
[2017-07-12 04:36] LABS: ALT/SGPT 42 U/L (12-78); AST/SGOT 48 U/L (15-37); BLOOD UREA NITROGEN 21 mg/dl (7-18); BUN/CREATININE RATIO 12.3 (10-20); CALCIUM 8.7 mg/dl (8.5-10.1); CARBON DIOXIDE 27 mmol/L (21-32); CHLORIDE 106 mmol/L (98-107); GLUCOSE 118 mg/dl (70-99); POTASSIUM 3.8 mmol/L (3.5-5.1); SODIUM 139 mmol/L (136-145)
[2017-07-12 04:46] LABS: ALB/GLOB RATIO 0.6 (0.9-2); ALKALINE PHOSPHATASE 185 U/L (45-117); THYROID STIMULATING HORMONE 0.449 uIu/ml (0.300-4.500)
[2017-07-12] MEDS ORDERED: SODIUM CHLORIDE 0.9% 500ML 500 ML IV STA (04:47)
[2017-07-12 05:55] VITALS: BP 137/85; PULSE 95; O2SAT 96
== END 2017-07-12 05:55 | disposition home or self-care (01) ==
LOC: EDBD 03:43 → C.EDA 03:44
DX: E11.649 Type 2 diabetes mellitus with hypoglycemia without coma (principal); I10 Essential (primary) hypertension; G35 Multiple sclerosis; Z85.00 Personal history of malignant neoplasm of unspecified digestive organ; Z79.899 Other long term (current) drug therapy; Z87.891 Personal history of nicotine dependence; Z88.2 Allergy status to sulfonamides; Z80.9 Family history of malignant neoplasm, unspecified; Z83.3 Family history of diabetes mellitus; Z82.49 Family history of ischemic heart disease and other diseases of the circulatory system

== ENCOUNTER → 2017-07-17 | Outpatient (CLI) | payer BC ==
[2017-07-17 12:41] LABS: BASO % 0.3 %; BASO ABS # 0.03 K/uL (0-0.2); COMPLETE YES; EOS % 1.9 %; HEMATOCRIT 32.3 % (42-52); IG% 0.8 %; LYMPH % 3.6 %; LYMPH ABS # 0.38 K/uL (1.2-3.4); MEAN CORPUSCULAR HGB CONC 31.6 g/dl (32-36); MEAN PLATELET VOLUME 10.4 fL (7.4-10.4); MONO % 8.3 %; NEUT % 85.1 %; PLATELET COUNT 507 K/uL (130-400); WHITE BLOOD COUNT 10.54 K/uL (4.8-10.8)
[2017-07-17 13:20] LABS: BLOOD UREA NITROGEN 24 mg/dl (7-18); CALCIUM 9.2 mg/dl (8.5-10.1); CARBON DIOXIDE 29 mmol/L (21-32); CHLORIDE 105 mmol/L (98-107); GLUCOSE 193 mg/dl (70-99); POTASSIUM 4.3 mmol/L (3.5-5.1); SODIUM 137 mmol/L (136-145)
== END | disposition home or self-care (01) ==
LOC: C.LABPVFM 10:27
PROVIDERS: ATTEND Family Medicine
DX: N28.9 Disorder of kidney and ureter, unspecified (principal); D64.9 Anemia, unspecified

== ENCOUNTER → 2017-10-25 | Outpatient (CLI) | payer BC ==
[2017-10-25 13:02] LABS: ESTIMATED AVERAGE GLUCOSE 177 mg/dl; HA1C FLAG Normal (Normal)
== END | disposition home or self-care (01) ==
LOC: C.LABPVFM 09:32
PROVIDERS: ATTEND Family Medicine
DX: E11.49 Type 2 diabetes mellitus with other diabetic neurological complication (principal)

== ENCOUNTER → 2017-12-03 | Outpatient (CLI) | payer BC ==
[2017-12-03 17:37] LABS: BLOOD UREA NITROGEN 27 mg/dl (7-18); CALCIUM 9.1 mg/dl (8.5-10.1); CARBON DIOXIDE 27 mmol/L (21-32); CREATININE 1.81 mg/dl (0.60-1.40); GLUCOSE 146 mg/dl (70-99); POTASSIUM 4.2 mmol/L (3.5-5.1); SODIUM 138 mmol/L (136-145)
== END | disposition home or self-care (01) ==
LOC: C.LABPVFM 12:33
PROVIDERS: ATTEND Family Medicine
DX: N28.9 Disorder of kidney and ureter, unspecified (principal)

== ENCOUNTER → 2018-03-28 | Outpatient (CLI) | payer BC ==
[~2018-03-28] MED LIST changes: -HYDR-5688 PO
[2018-03-28 17:47] LABS: BLOOD UREA NITROGEN 25 mg/dl (7-18); CALCIUM 9.1 mg/dl (8.5-10.1); CARBON DIOXIDE 28 mmol/L (21-32); CREATININE 1.95 mg/dl (0.60-1.40); GLUCOSE 177 mg/dl (70-99); POTASSIUM 3.9 mmol/L (3.5-5.1); SODIUM 138 mmol/L (136-145)
== END | disposition home or self-care (01) ==
LOC: C.LABPVFM 13:48
PROVIDERS: ATTEND Nurse Practitioner
DX: N28.9 Disorder of kidney and ureter, unspecified (principal)

== ENCOUNTER → 2018-03-31 | Outpatient (CLI) | payer BC ==
[2018-03-31 13:01] LABS: BASO % 0.4 %; BASO ABS # 0.03 K/uL (0-0.2); EOS % 3.5 %; EOS ABS # 0.27 K/uL (0-0.5); HEMATOCRIT 40.4 % (42-52); HEMOGLOBIN 13.4 g/dL (14.0-18.0); IG# 0.02 K/uL (0.00-0.02); LYMPH ABS # 1.17 K/uL (1.2-3.4); MEAN CELL VOLUME 92.9 fL (80-100); MEAN CORPUSCULAR HEMOGLOBIN 30.8 pg (25-34); MEAN CORPUSCULAR HGB CONC 33.2 g/dl (32-36); MEAN PLATELET VOLUME 12.3 fL (7.4-10.4); MONO % 9.6 %; MONO ABS # 0.75 K/uL (0.11-0.59); NEUT % 71.2 %; NEUT ABS # 5.54 K/uL (1.4-6.5); PLATELET COUNT 190 K/uL (130-400); RED CELL DISTRIBUTION WIDTH CV 13.2 % (11.5-14.5); RED CELL DISTRIBUTION WIDTH SD 44.9 fL (36.4-46.3); WHITE BLOOD COUNT 7.78 K/uL (4.8-10.8)
== END | disposition home or self-care (01) ==
LOC: C.LABPVFM 10:53
PROVIDERS: ATTEND Nurse Practitioner
DX: D64.9 Anemia, unspecified (principal)

== ENCOUNTER → 2018-07-15 | Outpatient (CLI) | payer BC ==
[2018-07-15 13:14] LABS: BLOOD UREA NITROGEN 24 mg/dl (7-18); CREATININE 1.76 mg/dl (0.60-1.40)
== END | disposition home or self-care (01) ==
LOC: C.LABPVFM 10:28
PROVIDERS: ATTEND Surgery
DX: R10.31 Right lower quadrant pain (principal)

== ENCOUNTER → 2018-07-16 | Outpatient (CLI) | payer BC ==
[~2018-07-16] MED LIST changes: +OPTIRAY 320 IV PRN
--- NOTE | 2018-07-16 12:50 | DIAGNOSTIC IMAGING REPORT ---
CT OF THE ABDOMEN AND PELVIS WITH CONTRAST CLINICAL HISTORY: Abdominal pain. Gastric cancer. COMPARISON STUDY: CT of the abdomen and pelvis May 30, 2017. TECHNIQUE: Following IV administration of 70 mL of Optiray-320, axial images of the abdomen and pelvis were obtained from the lung bases to the proximal femurs. Images were reviewed in the axial, sagittal, and coronal planes. IV contrast was administered without complication. A dose lowering technique was utilized adhering to the principles of ALARA. Oral contrast was administered. CT DOSE: 1077.42 mGycm FINDINGS: Visualized portions of the lower chest demonstrate small bilateral pleural effusions. Subcarinal lymph node is partially imaged on this exam. This may be slightly enlarged. A 5 mm right middle lobe nodule shown image [id number] is unchanged since prior exam of June 03, 2017. There is a trace pericardial effusion. Mild cardiomegaly is noted. Extensive coronary artery calcification is present. There is no pneumatosis, free air or portal venous gas is present. Interval postoperative findings of the stomach are noted. Mildly enlarged portacaval lymph node shown on image 157 measures 1.9 cm in short axis to a rib. There are minimally enlarged para-aortic lymph noted which measure up to 1.1 cm. A left hepatic lobe cyst is noted. The gallbladder is not distended. There is apparent minimal gallbladder wall thickening with minimal infiltration within the ubaldo hepatis. Borderline splenomegaly is noted. A 3.6 cm infrarenal abdominal aortic aneurysm is noted. A lesion arising from the lower pole the right kidney measures just above water attenuation. This favors a cyst. Extensive sigmoid diverticulosis is noted with mild wall thickening. There is no free air or abscess. Prostate is moderately enlarged. No suspicious osseous lesions are noted. Mild bladder wall thickening is unchanged. No pneumatosis, free air or portal venous gas is present. A fat-containing upper abdominal ventral hernia is noted. IMPRESSION: 1. Several mildly enlarged abdominal lymph nodes which are nonspecific. A short-term follow-up CT in 3-6 months is recommended. 2. Minimal infiltration within the ubaldo hepatis and possible mild gallbladder wall thickening. However, gallbladder not distended. No definite evidence for acute cholecystitis although if clinical suspicion, a hepatobiliary scan could be obtained. 3. Small bilateral pleural effusions and findings suggestive of mild interstitial pulmonary edema. Trace pericardial effusion. 4. Sigmoid diverticulosis with mild sigmoid wall thickening and possible minimal infiltration. Mild acute diverticulitis would be difficult to exclude. No free air or abscess. 5. Interval postoperative findings within the stomach. No bowel obstruction. 6. Fat-containing ventral hernia. Electronically signed by: Ashvin Avendano M.D. 07/16/2018 12:49 PM Dictated Date/Time: 07/16/2018 12:33 PM
--- NOTE | 2018-07-23 12:41 | Medical Student: [facility] ---
Med Student Progress Note Date of Service Jul 23, 2018. Subjective Pt evaluation today including: conversation w/ patient, conversation w/ family , review of studies Voiding: no voiding problems CC: Mr. Melara is a 88 y.o. male with a history of gastric cancer who had a partial gastrectomy performed nearly a year ago. During our last visit, he reported some abdominal pain at which time I was concerned about potential spread of malignancy, and thus ordered a CT of his abdomen and pelvis. He returns today to discuss the results of his CT and opportunities to manage abdominal pain. HPI: Mr. Melara is visiting today to hear about the results of his latest CT scan. He reports that he has tenderness on his left side. He also gets pain in his "stomach in the morning after drinking coffee", and for that reason has stopped drinking it. He also said his most annoying problem is that he "has difficulty sleeping". He also reports feeling more tired every day. PMH: Gastric cancer Diabetes Mellitus Multiple Sclerosis Reported Home Medications Medications Dose Route/Sig Max Daily Dose Days Date Category Flomax (Tamsulosin Hcl) 0.4 Mg Cap 0.4 Mg PO QAM 06/12/17 Reported Protonix (Pantoprazole Sodium) 40 Mg Tab 40 Mg PO BID 06/12/17 Reported Glimepiride 4 Mg Tab 1 Tab PO QAM 90 05/30/17 Reported Gilenya (Fingolimod Hcl) 0.5 Mg Cap 1 Cap PO QAM 05/30/17 Reported Xolegel (Ketoconazole (Topical)) 2 % Gel 1 Appln TOP DAILY PRN 05/30/17 Reported Viagra (Sildenafil Citrate) 100 Mg Tab 100 Mg PO PRN 05/30/17 Reported Sinequan (Doxepin HCl) 10 Mg Cap 10 Mg PO HS 05/30/17 Reported Lisinopril/Hctz 10/12.5 Mg (HCTZ/Lisinopril) 1 Ea Tab 1 Tab PO QAM 05/30/17 Reported Vitamin D 1000 Unit (Cholecalciferol) 1,000 Unit Cap 1,000 Inter.unit PO QAM 05/30/17 Reported Pravastatin Sodium 40 Mg Tab 40 Mg PO QPM 02/07/15 Reported Review of Systems Constitutional: + see HPI, + weight loss, + fatigue Eyes: No see HPI, No worsening of vision, No eye pain, No redness, No discharge , No diplopia, No problem reported Abdomen: + see HPI, + pain Musculoskeletal: No see HPI, No joint pain, No muscle pain, No swelling, No calf pain, No problem reported Male : + see HPI, + nocturia more than once/night Neurologic: + see HPI Endo: + see HPI, + fatigue Objective Physical Exam General Appearance: + mild distress Respiratory/Chest: normal breath sounds Abdomen: + tenderness, + hernia Comments: On physical exam, patient was showing some signs of mild distress in abdomen. When lowering to the supine position, patient described that his medial epigastric region and left lower quadrant of his abdomen were tender. Assessment and Plan Problems Altered mental status Diabetic hypoglycemia Upper GI bleed Diabetes Hypertension Multiple sclerosis Assessment and Plan: CC: Mr. Melara is a 88 y.o. male with a history of gastric cancer who had a partial gastrectomy performed nearly a year ago. During our last visit, he reported some abdominal pain to Dr. Cordero which concerned him about potential spread of malignancy, and thus ordered a CT of his abdomen and pelvis. Mr. Melara returns today to discuss the results of his CT and opportunities to manage abdominal pain. HPI: Mr. Melara is visiting today to hear about the results of his latest CT scan. He reports that he has tenderness on his left side. He also gets pain in his "stomach in the morning after drinking coffee", and for that reason has stopped drinking it. Patient's family also noted that his appetite has decreased, with increased sensations of feeling full and that he has lost 10 lbs in that last 2 months. However, he said his most annoying problem is that he "has difficulty sleeping". Patient was prescribed lorazepam by his primary care provider which he and his report did not help, so he has since stopped taking it. He also reports feeling more tired every day. Assessment and Plan 1. Abdominal Pain CT did not show any drastic growth of gastric cancer which was our previous concern. On imaging, there were so mildly enlarged lymph nodes but this is not very concerning. Sigmoid diverticulosis was observated on CT with mild sigmoid wall thickening. Mild acute diverticulitis wuoudl be difficult to exclude. This could explain pain in lower left quadrant. We will continue to keep an eye on this and consider antibiotic treatment if it worsens. CT scan showed thickening of the wall of his gallbladder. This could be from ongoing inflammation. We discusses with the patient the potential for a cholecystectomy which may be able to help with his symptoms of pain, decreased appetite, feelings of fullness. Patient has not made a decision on whether or not he would like to get cholecystectomy. At this time, they will wait and call me if pain worsens or they would like to go ahead with gallbladder removal. I would not be concerned for surgery for this patient as he had a more invasive surgery one year ago without any surgical complications. 2. Sleeping Difficulty I suggested to the patient that he follow up with his primary care provider or neurologist for his difficulty sleeping. I agreed with patient and family that stopping lorazepam was a good idea, as it was not helping his symptoms.
== END | disposition home or self-care (01) ==
LOC: C.CTS 10:57
PROVIDERS: ATTEND Surgery
DX: R60.0 Localized edema (principal); K57.30 Diverticulosis of large intestine without perforation or abscess without bleeding; K43.9 Ventral hernia without obstruction or gangrene; Z85.028 Personal history of other malignant neoplasm of stomach